=== PATIENT | male | born 1955 | race Caucasian/White ===

== ENCOUNTER → 2018-01-13 | Outpatient (CLI) | payer BC ==
--- NOTE | 2018-01-13 20:59 | CONS ---
CONSULTATION DATE OF SERVICE: 01/13/2018 62-year-old gentleman who has been evaluated in the [facility] for obstructive sleep apnea-hypopnea syndrome. HISTORY OF PRESENT ILLNESS/SLEEP WAKE EVALUATION: SLEEP SCHEDULE: Patient usual sleep schedule from 11:30 pm, 1:00 am, until 5 or 6 a.m. Then he goes back to bed about 7 or 8 a.m. and he sleeps until 10 or 11 am. FALLING ASLEEP: No problem with falling asleep. No TV in bedroom. He may take several naps during the day and he feels refreshed after a nap. DURING SLEEP: During the sleep at night he snores, but he sleeps by himself so no clear information about his breathing during his sleep. He usually goes to bed from 2 times at night. [place] Sleepiness Scale is 5. PAST MEDICAL HISTORY: Positive for hypertension, hyperlipidemia, hypothyroidism, diabetes mellitus. SURGICAL HISTORY: Aortic valve replacement in 2014 with pig valve. MEDICATIONS: Aspirin, furosemide, metoprolol, atorvastatin, lisinopril, Janumet, thyroxine. SOCIAL HISTORY: Negative for smoking and using alcohol at the present time. FAMILY HISTORY: Family history of snoring. REVIEW OF SYSTEMS: Awakenings from sleep, tiredness and sleepiness during the day. PHYSICAL EXAM: A 62-year-old gentleman without distress BP 127/68, HR 80, RR 16, height 5 feet 8 inches, weight 324, BMI 49.2, temperature 98.4, oxygen saturation room air 94%. Oropharynx extremely low position of soft palate. Mallampati IV, slight restriction of nasal breathing. ABDOMEN: Obese extremities show 1+ bilateral ankle edema. Neck Supple, no JVD. Thyroid is not palpable. LUNGS Clear to percussion and to auscultation. Good air exchange. No wheezing or rhonchi. HEART S1, S2 regular. No murmurs, gallops, or rubs. ABDOMEN: Obese. Soft and nontender. Bowel sounds are present. No organomegaly appreciated. EXTREMITIES: No clubbing or cyanosis. INSURANCE AGENCY SALES MANAGER Awake, alert, and oriented X3. Cranial nerves 2 to 7 intact. There is no fasciculation or atrophy. noted. No focal deficits observed. IMPRESSION: 1. Snoring, extremely low position of soft palate, multiple awakenings from sleep with nocturia, sleepiness during the day, obstructive sleep apnea-hypopnea syndrome. 2. Obesity BMI 49.2. 3. Hypertension. 4. Hyperlipidemia. 5. Hypothyroidism. 6. Diabetes mellitus. 7. Status post aortic valve replacement in 2015 with the pig valve. PLAN: 1. Polysomnography for evaluation of patient's breathing during sleep. 2. CPAP/BiPAP titration if sleep study confirms obstructive sleep apnea-hypopnea syndrome. 3. Preferable position during sleep on the side. 4. No driving if patient feels any sleepiness. 5. I will see patient for follow up visit to explain results of testing and following plan. Thank you very much for referring this patient for consultation. Sincerely, Kraig Waldron MD, PhD, FAASM Diplomat of [employer] [place] [employer] Product Manager [facility] [place] MMODL / BILLN: [id number] /
== END | disposition home or self-care (01) ==
LOC: SLEEP 15:01
PROVIDERS: ATTEND Internal Medicine
DX: G47.33 Obstructive sleep apnea (adult) (pediatric) (principal); M27.8 Other specified diseases of jaws; E66.9 Obesity, unspecified; I10 Essential (primary) hypertension; E78.5 Hyperlipidemia, unspecified; E03.9 Hypothyroidism, unspecified; E11.9 Type 2 diabetes mellitus without complications; Z68.42 Body mass index [BMI] 45.0-49.9, adult; Z95.3 Presence of xenogenic heart valve; Z79.82 Long term (current) use of aspirin; Z79.84 Long term (current) use of oral hypoglycemic drugs; Z79.899 Other long term (current) drug therapy
CPT/HCPCS: 99211

== ENCOUNTER 2019-10-05 21:00 | Inpatient (IN) | payer BC, MEDICARE ==
[2019-10-05] MEDS ORDERED: SODIUM CHLORIDE 0.9% 1,000 ML IV STA ×2 (21:11→21:28)
[2019-10-05] MEDS ORDERED: ADENOSINE 3 MG/ML 2 ML VIAL IVP ONE (21:18)
[2019-10-05] MEDS ORDERED: METOPROLOL TARTRATE 5 MG/5 ML VIAL IVP STA (21:27)
[2019-10-05] MEDS ORDERED: ADENOSINE 3 MG/ML 2 ML VIAL IVP STA (21:28)
--- NOTE | 2019-10-05 21:28 | ED ---
Arrhythmia/Palpitations HPI - General Chief Complaint: Arrhythmia/Palpitations Stated Complaint: abnormal EKG Time Seen by Provider: 10/05/19 21:07 Source: patient, RN notes reviewed, old records reviewed Mode of arrival: ambulatory Limitations: no limitations - History of Present Illness Initial Comments: This is a 63-year-old male coming in for near syncopal like symptoms palpitations and heart racing feeling weak and dizzy never had symptoms prior in his life that he can't really recall. No current chest pain diaphoresis no drug drugs or alcohol abuse no fevers no recent nausea vomiting or diarrhea. Patient initially felt heart palpitations did go to urgent care. Resolved Boso since the ER for further evaluation and management on arrival here in the ER patient does feel very lightheaded weak and dizzy and feels like his heart is signific antly elevated history of bit also did show elevated heart rate at home greater than 200 MD Complaint: "heart racing", "skipped beats", palpitations, irregular heart beat -: hour(s) Context: occurred during rest, occurred during exertion Associated Symptoms: shortness of breath, anxiety - Related Data Home Medications Medication Instructions Recorded Confirmed Albuterol Sulfate [Proair Hfa] 1 - 2 puff INHALATION RT-Q4H PRN 10/05/19 10/05/19 Aspirin EC [Ecotrin Low Dose] 81 mg PO HS 10/05/19 10/05/19 Atorvastatin [Lipitor] 20 mg PO HS 10/05/19 10/05/19 Furosemide [Lasix] 20 mg PO BID 10/05/19 10/05/19 Levothyroxine Sodium 100 mcg PO DAILY 10/05/19 10/05/19 Lisinopril [Zestril] 5 mg PO DAILY 10/05/19 10/05/19 sitaGLIPtin PHOS/metFORMIN HCL 1 tab PO DAILY 10/05/19 10/05/19 [Janumet 50-1,000 mg Tablet] Previous Rx's Medication Instructions Recorded Metoprolol Tartrate [Lopressor] 50 mg PO Q12H #60 tab 10/06/19 Allergies Allergy/AdvReac Type Severity Reaction Status Date / Time No Known Allergies Allergy Verified 10/05/19 21:51 Review of Systems ROS Statement: Those systems with pertinent positive or pertinent negative responses have been documented in the HPI. ROS Other: All systems not noted in ROS Statement are negative. Past Medical History Past Medical History: Coronary Artery Disease (CAD), Hypertension History of Any Multi-Drug Resistant Organisms: None Reported Past Surgical History: Orthopedic Surgery Additional Past Surgical History / Comment(s): aortic valve replacement Past Psychological History: No Psychological Hx Reported Smoking Status: Never smoker Past Alcohol Use History: None Reported Past Drug Use History: None Reported General Exam Limitations: no limitations General appearance: alert, anxious, in distress Head exam: Present: atraumatic, normocephalic, normal inspection Eye exam: Present: normal appearance, PERRL, EOMI. Absent: scleral icterus, conjunctival injection, periorbital swelling ENT exam: Present: normal exam, mucous membranes moist Neck exam: Present: normal inspection. Absent: tenderness, meningismus, lymphadenopathy Respiratory exam: Present: normal lung sounds bilaterally. Absent: respiratory distress, wheezes, rales, rhonchi, stridor Cardiovascular Exam: Present: tachycardia, irregular rhythm, normal heart sounds. Absent: systolic murmur, diastolic murmur, rubs, gallop, clicks GI/Abdominal exam: Present: soft, normal bowel sounds. Absent: distended, tenderness, guarding, rebound, rigid Extremities exam: Present: normal inspection, full ROM, normal capillary refill. Absent: tenderness, pedal edema, joint swelling, calf tenderness Back exam: Present: normal inspection Neurological exam: Present: alert, oriented X3, CN II-XII intact Psychiatric exam: Present: normal affect, normal mood Skin exam: Present: warm, dry, intact, normal color. Absent: rash Course Vital Signs 10/05/19 10/05/19 10/05/19 21:02 21:16 21:37 Temperature 98.3 F Pulse Rate 119 H 106 H Pulse Rate [ 179 H Foundry Operator ] Respiratory 24 18 Rate Blood Pressure 148/71 135/82 O2 Sat by Pulse 98 97 Oximetry 10/05/19 10/05/19 10/06/19 22:06 23:00 00:00 Temperature Pulse Rate 96 84 83 Pulse Rate [ Foundry Operator ] Respiratory 18 20 20 Rate Blood Pressure 116/81 125/74 110/71 O2 Sat by Pulse 98 98 97 Oximetry 10/06/19 10/06/19 10/06/19 01:00 02:00 03:00 Temperature Pulse Rate 80 77 74 Pulse Rate [ Foundry Operator ] Respiratory 16 20 16 Rate Blood Pressure 113/69 131/92 117/73 O2 Sat by Pulse 98 97 98 Oximetry 10/06/19 10/06/19 10/06/19 04:00 05:00 06:00 Temperature 97.8 F Pulse Rate 68 80 70 Pulse Rate [ Foundry Operator ] Respiratory 20 20 20 Rate Blood Pressure 116/78 125/78 119/74 O2 Sat by Pulse 97 97 97 Oximetry - Reevaluation(s) Reevaluation #1: 10/05/19 22:32 medical record is reviewed Reevaluation #2: 10/05/19 22:32 patient SVT resolves with 12mg Adenosine - Consultations Consultation #1: spoke w [facility] ok for admission EKG Findings - EKG Comments: EKG Findings:: EKG shows sinus tachycardia rate of 113, [place] 160, QRS 112, QTc 470. Patient went into SVT at rates in the 180s to 190s. Repeat EKG after cardioversion. EKG shows sinus tachycardia of 125, W[place] 158 QRS 116, QTC 42 Medical Decision Making - Medical Decision Making 63 male to the ED co rapid heart rate found to be in SVT discomfort with adenosi dc Alves for cardiology observation - Lab Data Result diagrams: 10/05/19 21:14 10/05/19 21:14 Lab Results 10/05/19 10/05/19 10/05/19 Range/Units 21:14 21:14 21:14 WBC 12.6 H (3.8-10.6) k/uL RBC 5.34 (4.30-5.90) m/uL Hgb 15.9 (13.0-17.5) gm/dL Hct 50.4 (39.0-53.0) % MCV 94.4 (80.0-100.0) fL MCH 29.8 (25.0-35.0) pg MCHC 31.5 (31.0-37.0) g/dL RDW 12.9 (11.5-15.5) % Plt Count 202 (150-450) k/uL Neutrophils % 81 % Lymphocytes % 11 % Monocytes % 5 % Eosinophils % 1 % Basophils % 1 % Neutrophils # 10.3 H (1.3-7.7) k/uL Lymphocytes # 1.3 (1.0-4.8) k/uL Monocytes # 0.6 (0-1.0) k/uL Eosinophils # 0.2 (0-0.7) k/uL Basophils # 0.1 (0-0.2) k/uL PT (9.0-12.0) sec INR (<1.2) APTT (22.0-30.0) sec Sodium 135 L (137-145) mmol/L Potassium 4.4 (3.5-5.1) mmol/L Chloride 102 (98-107) mmol/L Carbon Dioxide 23 (22-30) mmol/L Anion Gap 10 mmol/L BUN 20 (9-20) mg/dL Creatinine 0.74 (0.66-1.25) mg/dL Est GFR (CKD-EPI)AfAm >90 (>60 ml/min/1.73 sqM) Est GFR (CKD-EPI)NonAf >90 (>60 ml/min/1.73 sqM) Glucose 216 H (74-99) mg/dL Calcium 9.7 (8.4-10.2) mg/dL Phosphorus 3.1 (2.5-4.5) mg/dL Magnesium 1.8 (1.6-2.3) mg/dL Total Bilirubin 0.7 (0.2-1.3) mg/dL AST 52 (17-59) U/L ALT 49 (4-49) U/L Alkaline Phosphatase 111 (38-126) U/L Creatine Kinase 73 (55-170) U/L Troponin I (0.000-0.034) ng/mL NT-Pro-B Natriuret Pep 140 pg/mL Total Protein 7.2 (6.3-8.2) g/dL Albumin 4.2 (3.5-5.0) g/dL 10/05/19 10/05/19 Range/Units 21:14 21:14 WBC (3.8-10.6) k/uL RBC (4.30-5.90) m/uL Hgb (13.0-17.5) gm/dL Hct (39.0-53.0) % MCV (80.0-100.0) fL MCH (25.0-35.0) pg MCHC (31.0-37.0) g/dL RDW (11.5-15.5) % Plt Count (150-450) k/uL Neutrophils % % Lymphocytes % % Monocytes % % Eosinophils % % Basophils % % Neutrophils # (1.3-7.7) k/uL Lymphocytes # (1.0-4.8) k/uL Monocytes # (0-1.0) k/uL Eosinophils # (0-0.7) k/uL Basophils # (0-0.2) k/uL PT 10.6 (9.0-12.0) sec INR 1.0 (<1.2) APTT 23.3 (22.0-30.0) sec Sodium (137-145) mmol/L Potassium (3.5-5.1) mmol/L Chloride (98-107) mmol/L Carbon Dioxide (22-30) mmol/L Anion Gap mmol/L BUN (9-20) mg/dL Creatinine (0.66-1.25) mg/dL Est GFR (CKD-EPI)AfAm (>60 ml/min/1.73 sqM) Est GFR (CKD-EPI)NonAf (>60 ml/min/1.73 sqM) Glucose (74-99) mg/dL Calcium (8.4-10.2) mg/dL Phosphorus (2.5-4.5) mg/dL Magnesium (1.6-2.3) mg/dL Total Bilirubin (0.2-1.3) mg/dL AST (17-59) U/L ALT (4-49) U/L Alkaline Phosphatase (38-126) U/L Creatine Kinase (55-170) U/L Troponin I 0.026 (0.000-0.034) ng/mL NT-Pro-B Natriuret Pep pg/mL Total Protein (6.3-8.2) g/dL Albumin (3.5-5.0) g/dL Critical Care Time Critical Care Time: Yes Total Critical Care Time: 31 Disposition Clinical Impression: Palpitations, Tachycardia, Supraventricular tachycardia Disposition: ADMITTED IP TO THIS [facility] Condition: Good Is patient prescribed a controlled substance at d/c from ED?: No
[2019-10-05 21:38] LABS: Basophils # (A) 0.1 k/uL (0-0.2); Basophils % (A) 1 %; Eosinophils # (A) 0.2 k/uL (0-0.7); Eosinophils % (A) 1 %; HCT 50.4 % (39.0-53.0); HGB 15.9 gm/dL (13.0-17.5); Lymphocytes # (A) 1.3 k/uL (1.0-4.8); Lymphocytes % (A) 11 %; MCH 29.8 pg (25.0-35.0); MCHC 31.5 g/dL (31.0-37.0); MCV 94.4 fL (80.0-100.0); Monocytes # (A) 0.6 k/uL (0-1.0); Monocytes % (A) 5 %; Neutrophils # (A) 10.3 k/uL (1.3-7.7); Neutrophils % (A) 81 %; Platelet Count 202 k/uL (150-450); RBC 5.34 m/uL (4.30-5.90); RDW 12.9 % (11.5-15.5); WBC 12.6 k/uL (3.8-10.6)
[2019-10-05 21:44] LABS: Partial Thromboplastin Time 23.3 sec (22.0-30.0); Prothrombin Time 10.6 sec (9.0-12.0)
[2019-10-05 21:45] LABS: ALT 49 U/L (4-49); AST 52 U/L (17-59); African American GFR (CKD) >90 (>60 ml/min/1.73 sqM); Albumin 4.2 g/dL (3.5-5.0); Alkaline Phosphatase 111 U/L (38-126); Anion Gap 10 mmol/L; Blood Urea Nitrogen 20 mg/dL (9-20); Calcium 9.7 mg/dL (8.4-10.2); Carbon Dioxide 23 mmol/L (22-30); Chloride 102 mmol/L (98-107); Creatine Kinase 73 U/L (55-170); Glucose 216 mg/dL (74-99); Magnesium 1.8 mg/dL (1.6-2.3); Non-African American GFR(CKD) >90 (>60 ml/min/1.73 sqM); Phosphorus 3.1 mg/dL (2.5-4.5); Potassium 4.4 mmol/L (3.5-5.1); Sodium 135 mmol/L (137-145); Total Bilirubin 0.7 mg/dL (0.2-1.3); Total Protein 7.2 g/dL (6.3-8.2)
[2019-10-05] MEDS ORDERED: NITROGLYCERIN SL TABS 0.4 MG TAB SUBLINGUAL PRN (22:33)
[2019-10-05] MEDS ORDERED: ASPIRIN 81 MG PO STA (22:33)
[2019-10-06 08:27] LABS: Cholesterol 170 mg/dL (<200); HDL Cholesterol 53 mg/dL (40-60); LDL Cholesterol,Calculated 84 mg/dL (0-99); Triglycerides 163 mg/dL (<150)
[2019-10-06] MEDS ORDERED: ASPIRIN 325 MG TAB PO SCH (09:00)
[2019-10-06] MEDS ORDERED: METOPROLOL TARTRATE 50 MG TAB PO SCH (09:00)
[2019-10-06 11:15] VITALS: BP 129/77; PULSE 76; RESP 18; TEMP 98
--- NOTE | 2019-10-06 12:31 | P.CRDCN ---
History of Present Illness History of present illness: This is Dr. Smith dictating a consult on this patient The patient was interviewed and examined by me IMPRESSION / ASSESSMENT: Supraventricular tachycardia, adenosine sensitive, symptomatic Bicuspid aortic valve status post aVR Hypertension Dyslipidemia PLAN: Detailed discussion with the patient regarding management of supraventricular tachycardia, mechanism of supraventricular tachycardia, explained Valsalva maneuver Discussed medical treatment versus an frequency ablation Continue metoprolol for now Follow-up with primary dev technical mgr in [facility] Patient experienced sudden onset of palpitations. He's been experiencing palpitations after his aortic valve surgery. He ran out of metoprolol about a week back and knees had several episodes of this was the longest 1. He complained of palpitations and he could not count his pulse, because it was so rapid No syncope no chest discomfort Borderline troponins ROS: No fever chills or rigors, no cough, phlegm or expectoration, no nausea, vomiting or diarrhea, no hematuria, dysuria, no musculoskeletal complaints, no strokes or seizures, no skin lesions. EXAMINATION: Blood pressure 145/83 mmHg afebrile Pulse rate in the 60s and 70s to Normal respirations Breath sounds are clear line no rhonchi no crackles Heart sounds S1-S2 are normal there is a very soft systolic murmur S2 is crisp Abdomen soft nontender Sotalol REVIEW OF LABS, ECG & MEDICAL DATA White count 12.6 thousand, hemoglobin 15.9, sodium 135, BUN 20 and creatinine 0.74 Troponins 0.026, 0.046, 0.051 Normal BNP LDL 84 triglycerides 763 Twelve-lead ECG shows supraventricular ventricular tachycardia without clear-cut P waves Abrupt termination with 12 mg of IV adenosine Past Medical History Past Medical History: Coronary Artery Disease (CAD), Hypertension History of Any Multi-Drug Resistant Organisms: None Reported Past Surgical History: Orthopedic Surgery Additional Past Surgical History / Comment(s): aortic valve replacement Past Psychological History: No Psychological Hx Reported Smoking Status: Never smoker Past Alcohol Use History: None Reported Past Drug Use History: None Reported Medications and Allergies Home Medications Medication Instructions Recorded Confirmed Type Albuterol Sulfate [Proair Hfa] 1 - 2 puff INHALATION RT-Q4H PRN 10/05/19 History Aspirin EC [Ecotrin Low Dose] 81 mg PO HS 10/05/19 10/05/19 History Atorvastatin [Lipitor] 20 mg PO HS 10/05/19 10/05/19 History Furosemide [Lasix] 20 mg PO BID 10/05/19 10/05/19 History Levothyroxine Sodium 100 mcg PO DAILY 10/05/19 10/05/19 History Lisinopril [Zestril] 5 mg PO DAILY 10/05/19 10/05/19 History sitaGLIPtin PHOS/metFORMIN HCL 1 tab PO DAILY 10/05/19 10/05/19 History [Janumet 50-1,000 mg Tablet] Metoprolol Tartrate [Lopressor] 50 mg PO Q12H #60 tab 10/06/19 Rx Allergies Allergy/AdvReac Type Severity Reaction Status Date / Time No Known Allergies Allergy Verified 10/05/19 21:51 Physical Exam Vitals: Vital Signs Temp Pulse Pulse Pulse Resp BP BP 10/06/19 11:13 98.0 F 76 18 129/77 10/06/19 09:40 70 16 10/06/19 08:50 72 16 10/06/19 08:25 98.1 F 72 16 145/107 10/06/19 07:14 97.7 F 66 16 159/83 10/06/19 06:00 97.8 F 70 20 119/74 10/06/19 05:00 80 20 125/78 10/06/19 04:00 68 20 116/78 10/06/19 03:00 74 16 117/73 10/06/19 02:00 77 20 131/92 10/06/19 01:00 80 16 113/69 10/06/19 00:00 83 20 110/71 10/05/19 23:00 84 20 125/74 10/05/19 22:06 96 18 116/81 10/05/19 21:37 106 H 18 135/82 10/05/19 21:16 179 H 10/05/19 21:02 98.3 F 119 H 24 148/71 Pulse Ox 10/06/19 11:13 96 10/06/19 09:40 10/06/19 08:50 10/06/19 08:25 94 L 10/06/19 07:14 96 10/06/19 06:00 97 10/06/19 05:00 97 10/06/19 04:00 97 10/06/19 03:00 98 01/31/20 02:00 97 10/06/19 01:00 98 10/06/19 00:00 97 10/05/19 23:00 98 10/05/19 22:06 98 10/05/19 21:37 97 10/05/19 21:16 10/05/19 21:02 98 Intake and Output 10/05/19 10/06/19 10/06/19 22:59 06:59 14:59 Other: Weight 149.685 kg Results 10/05/19 21:14 10/05/19 21:14 Cardiac Enzymes 10/05/19 10/05/19 10/06/19 Range/Units 21:14 21:14 02:57 AST 52 (17-59) U/L Troponin I 0.026 0.046 H* (0.000-0.034) ng/mL 10/06/19 Range/Units 07:53 AST (17-59) U/L Troponin I 0.051 H* (0.000-0.034) ng/mL Coagulation 10/05/19 Range/Units 21:14 PT 10.6 (9.0-12.0) sec APTT 23.3 (22.0-30.0) sec Lipids 10/06/19 Range/Units 07:53 Triglycerides 163 H (<150) mg/dL Cholesterol 170 (<200) mg/dL HDL Cholesterol 53 (40-60) mg/dL CBC 10/05/19 Range/Units 21:14 WBC 12.6 H (3.8-10.6) k/uL RBC 5.34 (4.30-5.90) m/uL Hgb 15.9 (13.0-17.5) gm/dL Hct 50.4 (39.0-53.0) % Plt Count 202 (150-450) k/uL Comprehensive Metabolic Panel 10/05/19 Range/Units 21:14 Sodium 135 L (137-145) mmol/L Potassium 4.4 (3.5-5.1) mmol/L Chloride 102 (98-107) mmol/L Carbon Dioxide 23 (22-30) mmol/L BUN 20 (9-20) mg/dL Creatinine 0.74 (0.66-1.25) mg/dL Glucose 216 H (74-99) mg/dL Calcium 9.7 (8.4-10.2) mg/dL AST 52 (17-59) U/L ALT 49 (4-49) U/L Alkaline Phosphatase 111 (38-126) U/L Total Protein 7.2 (6.3-8.2) g/dL Albumin 4.2 (3.5-5.0) g/dL Current Medications Generic Name Dose Route Start Last Admin Trade Name Freq PRN Reason Stop Dose Admin Aspirin 325 mg 10/06/19 09:00 10/06/19 09:26 Aspirin PO 325 mg DAILY KATHI Administration Metoprolol Tartrate 50 mg 10/06/19 09:00 10/06/19 09:25 Lopressor PO 50 mg BID KATHI Administration Nitroglycerin 0.4 mg 10/05/19 22:33 Nitrostat SUBLINGUAL Q5M PRN Chest Pain Intake and Output 10/05/19 10/06/19 10/06/19 22:59 06:59 14:59 Other: Weight 149.685 kg 10/05/19 21:14 10/05/19 21:14
--- NOTE | 2019-10-06 12:44 | ECHOF ---
Referral Reason:elevated trop MEASUREMENTS -------- HEIGHT: 177.8 cm WEIGHT: 149.7 kg BP: 145/107 RVIDd: 3.6 cm (< 3.3) IVSd: 1.5 cm (0.6 - 1.1) LVIDd: 5.5 cm (3.9 - 5.3) LVPWd: 1.7 cm (0.6 - 1.1) IVSs: 2.2 cm LVIDs: 3.0 cm LVPWs: 2.2 cm LA Diam: 3.9 cm (2.7 - 3.8) LAESV Index (A-L): 29.36 ml/m Ao Diam: 3.8 cm (2.0 - 3.7) MV EXCURSION: 10.090 mm (> 18.000) MV EF SLOPE: 56 mm/s (70 - 150) EPSS: 1.1 cm MV E Nicholas: 1.10 m/s MV DecT: 210 ms MV A Nicholas: 0.99 m/s MV E/A Ratio: 1.10 AV maxP.49 mmHg AV meanP.73 mmHg RAP: 5.00 mmHg RVSP: 49.79 mmHg FINDINGS -------- Sinus rhythm. This was a technically difficult study with suboptimal views. The left ventricular size is normal. There is moderate concentric left ventricular hypertrophy. O verall left ventricular systolic function is normal with, an EF between 55 - 60 %. The right ventricle is mildly enlarged. LA is midly dilated 29-33ml/m2. The right atrium was not well visualized. 5.0mg of Lumason was utilized for enhancement of images There is moderate aortic regurgitation. Peak/mean gradient across the Aortic Valve is 46.49mmHg / 2 6.73mmHg. Abnormally functioning porcine bioprosthetic aortic valve. Mild mitral annular calcification present. Mild mitral regurgitation is present. Mild tricuspid regurgitation present. There is moderate pulmonary hypertension. The right ventric ular systolic pressure, as measured by Doppler, is 49.79mmHg. Trace/mild (physiologic) pulmonic regurgitation. The aortic root is dilated measuring 3.8cm. IVC Not well visulized. There is no pericardial effusion. CONCLUSIONS -------- 1. Sinus rhythm. 2. This was a technically difficult study with suboptimal views. 3. The left ventricular size is normal. 4. There is moderate concentric left ventricular hypertrophy. 5. Overall left ventricular systolic function is normal with, an EF between 55 - 60 %. 6. The right ventricle is mildly enlarged. 7. LA is midly dilated 29-33ml/m2. 8. The right atrium was not well visualized. 9. 5.0mg of Lumason was utilized for enhancement of images 10. There is moderate aortic regurgitation. 11. Peak/mean gradient across the Aortic Valve is 46.49mmHg / 26.73mmHg. 12. Abnormally functioning porcine bioprosthetic aortic valve. 13. Mild mitral annular calcification present. 14. Mild mitral regurgitation is present. 15. Mild tricuspid regurgitation present. 16. There is moderate pulmonary hypertension. 17. The right ventricular systolic pressure, as measured by Doppler, is 49.79mmHg. 18. Trace/mild (physiologic) pulmonic regurgitation. 19. The aortic root is dilated measuring 3.8cm. 20. IVC Not well visulized. 21. There is no pericardial effusion. FEED BLENDER: DANE Cornejo
--- NOTE | 2019-10-06 13:17 | P.HPIM ---
History of Present Illness Patient came in with compensative palpitations. Patient denied any history of congestive heart failure. 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 Patient was started back on metoprolol patient is given will be discharged today patient has bilateral pedal edema probably secondary to chronic venous insufficiency patient is morbidly obese was complaining of lack of sleep Last few weeks. Patient will need a sleep study Review of Systems REVIEW OF SYSTEMS: CONSTITUTIONAL: No fever, no malaise, no fatigue. HEENT: No recent visual problems or hearing problems. Denied any sore throat. CARDIOVASCULAR: No chest pain, orthopnea, PND, , no syncope. PULMONARY: No shortness of breath, no cough, no hemoptysis. GASTROINTESTINAL: No diarrhea, no nausea, no vomiting, no abdominal pain. NEUROLOGICAL: No headaches, no weakness, no numbness. HEMATOLOGICAL: Denies any bleeding or petechiae. GENITOURINARY: Denies any burning micturition, frequency, or urgency. MUSCULOSKELETAL/RHEUMATOLOGICAL: Denies any joint pain, swelling, or any muscle pain. ENDOCRINE: Denies any polyuria or polydipsia. The rest of the 14-point review of systems is negative. Past Medical History Past Medical History: Coronary Artery Disease (CAD), Hypertension History of Any Multi-Drug Resistant Organisms: None Reported Past Surgical History: Orthopedic Surgery Additional Past Surgical History / Comment(s): aortic valve replacement Past Psychological History: No Psychological Hx Reported Smoking Status: Never smoker Past Alcohol Use History: None Reported Past Drug Use History: None Reported Medications and Allergies Home Medications Medication Instructions Recorded Confirmed Type Albuterol Sulfate [Proair Hfa] 1 - 2 puff INHALATION RT-Q4H PRN 10/05/19 10/05/19 History Aspirin EC [Ecotrin Low Dose] 81 mg PO HS 10/05/19 10/05/19 History Atorvastatin [Lipitor] 20 mg PO HS 10/05/19 10/05/19 History Furosemide [Lasix] 20 mg PO BID 10/05/19 10/05/19 History Levothyroxine Sodium 100 mcg PO DAILY 10/05/19 10/05/19 History Lisinopril [Zestril] 5 mg PO DAILY 10/05/19 10/05/19 History sitaGLIPtin PHOS/metFORMIN HCL 1 tab PO DAILY 10/05/19 10/05/19 History [Janumet 50-1,000 mg Tablet] Metoprolol Tartrate [Lopressor] 50 mg PO Q12H #60 tab 10/06/19 Rx Allergies Allergy/AdvReac Type Severity Reaction Status Date / Time No Known Allergies Allergy Verified 10/05/19 21:51 Physical Exam Vitals: Vital Signs Temp Pulse Pulse Pulse Resp BP BP 10/06/19 11:13 98.0 F 76 18 129/77 10/06/19 09:40 70 16 10/06/19 08:50 72 16 10/06/19 08:25 98.1 F 72 16 145/107 10/06/19 07:14 97.7 F 66 16 159/83 10/06/19 06:00 97.8 F 70 20 119/74 10/06/19 05:00 80 20 125/78 10/06/19 04:00 68 20 116/78 10/06/19 03:00 74 16 117/73 10/06/19 02:00 77 20 131/92 10/06/19 01:00 80 16 113/69 10/06/19 00:00 83 20 110/71 10/05/19 23:00 84 20 125/74 10/05/19 22:06 96 18 116/81 10/05/19 21:37 106 H 18 135/82 10/05/19 21:16 179 H 10/05/19 21:02 98.3 F 119 H 24 148/71 Pulse Ox 10/06/19 11:13 96 10/06/19 09:40 10/06/19 08:50 10/06/19 08:25 94 L 10/06/19 07:14 96 10/06/19 06:00 97 10/06/19 05:00 97 10/06/19 04:00 97 10/06/19 03:00 98 10/06/19 02:00 97 10/06/19 01:00 98 10/06/19 00:00 97 10/05/19 23:00 98 10/05/19 22:06 98 10/05/19 21:37 97 10/05/19 21:16 10/05/19 21:02 98 Intake and Output 10/05/19 10/06/1920 22:59 06:59 14:59 Other: Weight 149.685 kg PHYSICAL EXAMINATION: GENERAL: The patient is alert and oriented x3, not in any acute distress. Obese HEENT: Pupils are round and equally reacting to light. EOMI. No scleral icterus. No conjunctival pallor. Normocephalic, atraumatic. No pharyngeal erythema. No thyromegaly. CARDIOVASCULAR: S1 and S2 present. No murmurs, rubs, or gallops. PULMONARY: Chest is clear to auscultation, no wheezing or crackles. ABDOMEN: Soft, nontender, nondistended, normoactive bowel sounds. No palpable organomegaly. MUSCULOSKELETAL: No joint swelling or deformity. EXTREMITIES: No cyanosis, clubbing, does have bilateral pitting pedal edema 2+. NEUROLOGICAL: Gross neurological examination did not reveal any focal deficits. SKIN: No rashes. Results CBC & Chem 7: 10/05/19 21:14 10/05/19 21:14 Labs: Abnormal Lab Results - Last 24 Hours (Table) 10/05/19 10/05/19 10/06/19 Range/Units 21:14 21:14 02:57 WBC 12.6 H (3.8-10.6) k/uL Neutrophils # 10.3 H (1.3-7.7) k/uL Sodium 135 L (137-145) mmol/L Glucose 216 H (74-99) mg/dL Troponin I 0.046 H* (0.000-0.034) ng/mL Triglycerides (<150) mg/dL 10/06/19 10/06/19 Range/Units 07:53 07:53 WBC (3.8-10.6) k/uL Neutrophils # (1.3-7.7) k/uL Sodium (137-145) mmol/L Glucose (74-99) mg/dL Troponin I 0.051 H* (0.000-0.034) ng/mL Triglycerides 163 H (<150) mg/dL Assessment and Plan Plan: -Symptomatic. bradycardia tachycardia super ventricular tachycardia responded to adenosine. Patient's improved. 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 -Possibility of sleep apnea. 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
--- NOTE | 2019-10-06 13:17 | P.DS ---
Providers Date of admission: 10/05/19 22:34 Attending physician: Fransisco Paige Consults: 10/05/19 22:33 Consult Physician Urgent Consulting Provider: Cleopatra Jack Consult Reason/Comments: svt Do you want consulting provider notified?: Yes Primary care physician: Reinaldo Muller [facility] Course: Please refer to [facility] for further details Patient Condition at Discharge: Good Plan - Discharge Summary New Discharge Prescriptions: Continue Lisinopril [Zestril] 5 mg PO DAILY Furosemide [Lasix] 20 mg PO BID Atorvastatin [Lipitor] 20 mg PO HS Aspirin EC [Ecotrin Low Dose] 81 mg PO HS Albuterol Sulfate [Proair Hfa] 1 - 2 puff INHALATION RT-Q4H PRN PRN Reason: Shortness Of Breath sitaGLIPtin PHOS/metFORMIN HCL [Janumet 50-1,000 mg Tablet] 1 tab PO DAILY Levothyroxine Sodium 100 mcg PO DAILY Metoprolol Tartrate [Lopressor] 50 mg PO Q12H #60 tab Discharge Medication List Albuterol Sulfate [Proair Hfa] 1 - 2 puff INHALATION RT-Q4H PRN 10/05/19 [History] Aspirin EC [Ecotrin Low Dose] 81 mg PO HS 10/05/19 [History] Atorvastatin [Lipitor] 20 mg PO HS 10/05/19 [History] Furosemide [Lasix] 20 mg PO BID 10/05/19 [History] Levothyroxine Sodium 100 mcg PO DAILY 10/05/19 [History] Lisinopril [Zestril] 5 mg PO DAILY 10/05/19 [History] sitaGLIPtin PHOS/metFORMIN HCL [Janumet 50-1,000 mg Tablet] 1 tab PO DAILY 10/05/19 [History] Metoprolol Tartrate [Lopressor] 50 mg PO Q12H #60 tab 10/06/19 [Rx] Follow up Appointment(s)/Referral(s): Reinaldo Muller III, MD [Primary Care Provider] - 1-2 days
== END 2019-10-06 15:45 | disposition home or self-care (01) | DRG 309 ==
LOC: EC 21:00 → 3SCARD 22:34
PROVIDERS: ADMIT Hospitalist; ATTEND Hospitalist
DX: I47.1 Supraventricular tachycardia (principal); Q23.1 Congenital insufficiency of aortic valve; Z68.42 Body mass index [BMI] 45.0-49.9, adult; E78.5 Hyperlipidemia, unspecified; F41.9 Anxiety disorder, unspecified; E66.9 Obesity, unspecified; I10 Essential (primary) hypertension; I25.10 Atherosclerotic heart disease of native coronary artery without angina pectoris; Z79.84 Long term (current) use of oral hypoglycemic drugs; Z79.890 Hormone replacement therapy; Z79.899 Other long term (current) drug therapy; T44.7X6A Underdosing of beta-adrenoreceptor antagonists, initial encounter; Z91.128 Patient's intentional underdosing of medication regimen for other reason; Z95.2 Presence of prosthetic heart valve; G47.30 Sleep apnea, unspecified
CPT/HCPCS: 36415; 80053; 80061; 82550; 83605; 83735; 83880; 84100; 84443; 84484; 85025; 85610; 85730; 93005; 93306; 96361; 96374; 96375; 99291

== ENCOUNTER 2020-02-22 | Emergency (ER) | payer MEDICARE ==
[2020-02-22 00:09] VITALS: BP 163/81; PULSE 100; RESP 22; TEMP 98
== END 2020-02-22 00:12 | disposition left against medical advice (07) ==
LOC: EC
DX: R00.0 Tachycardia, unspecified (principal)
CPT/HCPCS: 99499

== ENCOUNTER → 2020-07-16 | Outpatient (CLI) | payer MEDICARE ==
--- NOTE | 2020-07-16 13:09 | US ---
EXAMINATION TYPE: US venous doppler duplex LE RT DATE OF EXAM: 07/16/2020 12:55 PM COMPARISON: NONE CLINICAL HISTORY: L03.115 CELLULITIS OR RT LOWER LIMB,M79.604 PAIN IN RT LEG. SIDE PERFORMED: Right TECHNIQUE: The lower extremity deep venous system is examined utilizing real time linear array sonog vitaliy with graded compression, doppler sonography and color-flow sonography. VESSELS IMAGED: Common Femoral Vein Deep Femoral Vein Greater Saphenous Vein * Femoral Vein Popliteal Vein Small Saphenous Vein * Proximal Calf Veins (* superficial vessels) Right Leg: Negative for DVT IMPRESSION: No evidence for DVT at this time.
== END | disposition home or self-care (01) ==
LOC: RADUSWWP 12:28
PROVIDERS: ATTEND Family Medicine
DX: L03.115 Cellulitis of right lower limb (principal); M79.604 Pain in right leg

== ENCOUNTER 2021-01-10 13:48 | Emergency (ER) | payer MEDICARE ==
[2021-01-10 13:58] VITALS: BP 107/69; PULSE 104; RESP 26; TEMP 98.4
[2021-01-10] MEDS ORDERED: FLECAINIDE 50 MG TAB PO STA (14:37)
[2021-01-10] MEDS ORDERED: CEPHALEXIN 500MG STARTER PACK 4 CAP BTL PO STA (14:43)
--- NOTE | 2021-01-10 14:43 | ED ---
General Adult HPI - General Chief complaint: Shortness of Breath Stated complaint: SOB Time Seen by Provider: 01/10/21 14:03 Source: patient Mode of arrival: ambulatory Limitations: no limitations - History of Present Illness Initial comments: 65-year-old male with a past medical history coronary artery disease, heart failure, diabetes mellitus, hyperlipidemia, hypertension, atrial fibrillation, aortic valve replacement presents to the emergency room for a chief complaint of body stiffness. Patient reports that he has been sitting around all winter. The past 2 days he started working on his truck's again. When he woke up today he was very stiff so decided to go to urgent care. Patient states that once he got there the stiffness improves significantly after is moving around. Also told her to her that he felt a little more winded over the past 2 days and normal. Patient himself is attributing this to the fact that he has been out and about doing activities where he has not been in the past several months. Patient states his legs are a little bit more swollen as well. Patient states he did not want to come here by urgent care told him he had to. He states he has an appointment with his primary care provider in 3 days. He states he does not want anything done here today and just wants to go to his primary care.Patient has no other complaints at this time including chest pain, abdominal pain, nausea or vomiting, headache, or visual changes. - Related Data Home Medications Medication Instructions Recorded Confirmed Albuterol Sulfate [Proair Hfa] 1 - 2 puff INHALATION RT-Q4H PRN 10/05/19 10/05/19 Aspirin EC [Ecotrin Low Dose] 81 mg PO HS 10/05/19 10/05/19 Atorvastatin [Lipitor] 20 mg PO HS 10/05/19 10/05/19 Furosemide [Lasix] 20 mg PO BID 10/05/19 10/05/19 Levothyroxine Sodium 100 mcg PO DAILY 10/05/19 10/05/19 lisinopriL [Zestril] 5 mg PO DAILY 10/05/19 10/05/19 sitaGLIPtin PHOS/metFORMIN HCL 1 tab PO DAILY 10/05/19 10/05/19 [Janumet 50-1,000 mg Tablet] Previous Rx's Medication Instructions Recorded Metoprolol Tartrate [Lopressor] 50 mg PO Q12H #60 tab 10/06/19 Allergies Allergy/AdvReac Type Severity Reaction Status Date / Time No Known Allergies Allergy Verified 01/10/21 13:55 Review of Systems ROS Statement: Those systems with pertinent positive or pertinent negative responses have been documented in the HPI. ROS Other: All systems not noted in ROS Statement are negative. Past Medical History Past Medical History: Coronary Artery Disease (CAD), Heart Failure, Diabetes Me llitus, Hyperlipidemia, Hypertension Additional Past Medical History / Comment(s): SVT, History of Any Multi-Drug Resistant Organisms: None Reported Past Surgical History: Orthopedic Surgery Additional Past Surgical History / Comment(s): aortic valve replacement, Past Psychological History: No Psychological Hx Reported Smoking Status: Never smoker Past Alcohol Use History: None Reported Past Drug Use History: None Reported General Exam - General Exam Comments Initial Comments: Left leg: Mild erythema noted of the lower leg. Nonpitting edema noted. Cap refill less than 2 seconds, DT pulse 2+. Full range of motion. Right leg: Erythema noted of the lower leg as well as an area on the inner upper thigh. No tenderness. Nonpitting edema noted. Full range of motion. Limitations: no limitations General appearance: alert, in no apparent distress Head exam: Present: atraumatic, normocephalic, normal inspection Eye exam: Present: normal appearance, PERRL, EOMI. Absent: scleral icterus, conjunctival injection, periorbital swelling ENT exam: Present: normal exam, mucous membranes moist Neck exam: Present: normal inspection, full ROM. Absent: tenderness, meningismus, lymphadenopathy Respiratory exam: Present: normal lung sounds bilaterally. Absent: respiratory distress, wheezes, rales, rhonchi, stridor Cardiovascular Exam: Present: regular rate, normal rhythm, normal heart sounds. Absent: systolic murmur, diastolic murmur, rubs, gallop, clicks GI/Abdominal exam: Present: soft, normal bowel sounds. Absent: distended, tenderness, guarding, rebound, rigid Neurological exam: Present: alert Course Vital Signs 01/10/21 13:50 Temperature 98.4 F Pulse Rate 104 H Respiratory 26 H Rate Blood Pressure 107/69 O2 Sat by Pulse 94 L Oximetry Medical Decision Making - Medical Decision Making Patient presents with stable vitals. Slight tachycardia which patient does have a history of. He is due for his flecanaide which he is requesting. HPI and physical exam as documented. I discussed with patient that I would like to work him up for heart failure exacerbation and rule out DVT or PE, both of which could be life-threatening. Patient reports he does not want anything done. He thinks he may need antibiotics for his leg as it is more red than normal but otherwise does not want a workup. I did discuss this could mean he has a blood clot which could go to his lungs but he does not want this evaluated. He states he has an appointment with his primary care provider on Wednesday and does not want anything started here. He states he only came because he told urgent care he would. He is agreeable to returning for worsening symptoms which i highly encouraged. patient is alert and oriented, able to make his own medical decis ions. COVID negative at urgent care Disposition Clinical Impression: Shortness of breath, Leg swelling, Myalgia Disposition: Left Against Medical Advice Condition: Undetermined Instructions (If sedation given, give patient instructions): Cellulitis (ED) Additional Instructions: Please take antibiotic as directed. Monitor symptoms. If you're becoming more short of breath, developing chest pain, having fevers, or redness or swelling is worsening in your leg you must return to the emergency room. Otherwise make sure you attend your appointment on Wednesday with your doctor. Is patient prescribed a controlled substance at d/c from ED?: No Referrals: Minna Sousa MD [Primary Care Provider] - 1-2 days Time of Disposition: 14:42
== END 2021-01-10 15:00 | disposition left against medical advice (07) ==
LOC: EC 13:48
DX: R06.02 Shortness of breath (principal); M79.89 Other specified soft tissue disorders; M79.10 Myalgia, unspecified site; I25.10 Atherosclerotic heart disease of native coronary artery without angina pectoris; I11.0 Hypertensive heart disease with heart failure; I50.9 Heart failure, unspecified; E78.5 Hyperlipidemia, unspecified; E11.9 Type 2 diabetes mellitus without complications; Z79.82 Long term (current) use of aspirin
CPT/HCPCS: 99284

== ENCOUNTER 2021-01-13 15:08 | Observation (INO) | payer MEDICARE ==
--- NOTE | 2021-01-13 17:07 | ED ---
Extremity Problem HPI - General Source: patient, RN notes reviewed Mode of arrival: ambulatory Limitations: no limitations <Waqas Campoverde - Last Filed: 01/13/21 18:31> <Enid Santana - Last Filed: 01/25/21 17:45> - General Chief complaint: Extremity Problem,Nontraumatic Stated complaint: R Leg infection, blisters Time Seen by Provider: 01/13/21 16:21 - History of Present Illness Initial comments: Patient is a 65-year-old male that presents to emergency department complaining of right lower extremity infection. He notes that he is been to his primary care been on several rounds antibiotics. He recently went to a tolerable amount for a procedure where they kept him for some antibiotic therapy due to a azinab lulitis and right lower leg extremity infection. He comes in today stating that his right lower leg has not gotten any better its fire engine red was extremely hot to the touch and has several large blisters. He notes that it also been weeping serosanguineous fluid last several days. He denied any discomfort or pain in that leg. He denied any weakness numbness tingling decreased sensation in that foot. He denied any chest pain shortness of breath headache nausea vomiting diarrhea constipation fever fatigue chills. (Waqas Campoverde) - Related Data Home Medications Medication Instructions Recorded Confirmed Aspirin EC [Ecotrin Low Dose] 81 mg PO HS 10/05/19 01/13/21 Atorvastatin [Lipitor] 20 mg PO HS 10/05/19 01/13/21 sitaGLIPtin PHOS/metFORMIN HCL 1 tab PO DAILY 10/05/19 01/13/21 [Janumet 50-1,000 mg Tablet] Empagliflozin [Jardiance] 25 mg PO DAILY 01/13/21 01/13/21 Flecainide Acetate 100 mg PO BID 01/13/21 01/13/21 Furosemide [Lasix] 40 mg PO BID 01/13/21 01/13/21 Levothyroxine Sodium [Synthroid] 112 mcg PO DAILY 01/13/21 01/13/21 Metoprolol Tartrate [Lopressor] 50 mg PO BID 01/13/21 01/13/21 Potassium Chloride ER [K-Dur 10] 10 meq PO BID 01/13/21 01/13/21 lisinopriL [Zestril] 5 mg PO DAILY 01/13/21 01/13/21 metOLazone [Zaroxolyn] 5 mg PO Q48H 01/13/21 01/13/21 Previous Rx's Medication Instructions Recorded Cephalexin [Keflex] 500 mg PO Q6HR 10 Days #40 cap 01/18/21 Insulin Detemir (Levemir) [Levemir] 15 unit SQ HS #1 syr 01/18/21 Multivitamins, Thera [Multivitamin 1 each PO DAILY@1200 #30 tab 01/18/21 (formulary)] Allergies Allergy/AdvReac Type Severity Reaction Status Date / Time No Known Allergies Allergy Verified 01/13/21 20:28 Review of Systems ROS Other: All systems not noted in ROS Statement are negative. <Waqas Campoverde - Last Filed: 01/13/21 18:31> ROS Other: All systems not noted in ROS Statement are negative. <Enid Santana - Last Filed: 01/25/21 17:45> ROS Statement: Those systems with pertinent positive or pertinent negative responses have been documented in the HPI. Past Medical History Past Medical History: Coronary Artery Disease (CAD), Heart Failure, Diabetes Mellitus, Hyperlipidemia, Hypertension Additional Past Medical History / Comment(s): SVT, History of Any Multi-Drug Resistant Organisms: None Reported Past Surgical History: Orthopedic Surgery Additional Past Surgical History / Comment(s): aortic valve replacement, Past Psychological History: No Psychological Hx Reported Smoking Status: Never smoker Past Alcohol Use History: None Reported Past Drug Use History: None Reported <Waqas Campoverde - Last Filed: 01/13/21 18:31> General Exam Limitations: no limitations General appearance: alert, in no apparent distress, obese Head exam: Present: atraumatic, normocephalic, normal inspection Eye exam: Present: normal appearance, PERRL, EOMI. Absent: scleral icterus, con junctival injection, periorbital swelling Neck exam: Present: normal inspection. Absent: tenderness, meningismus, lymphadenopathy Respiratory exam: Present: normal lung sounds bilaterally. Absent: respiratory distress, wheezes, rales, rhonchi, stridor Cardiovascular Exam: Present: regular rate, normal rhythm, normal heart sounds. Absent: systolic murmur, diastolic murmur, rubs, gallop, clicks GI/Abdominal exam: Present: soft, normal bowel sounds. Absent: distended, tenderness, guarding, rebound, rigid Extremities exam: Present: normal inspection, full ROM, normal capillary refill. Absent: tenderness, pedal edema, joint swelling, calf tenderness Neurological exam: Present: alert, oriented X3, CN II-XII intact Psychiatric exam: Present: normal affect, normal mood Skin exam: Present: warm, dry, intact, normal color, erythema (Circumferential on right lower extremity with several vesicles and large blisters.), other (Right lower extremity weeping serosanguineous fluid.). Absent: rash <Waqas Campoverde - Last Filed: 01/13/21 18:31> Course Vital Signs 01/13/21 01/13/21 01/13/21 15:15 17:44 19:04 Temperature 97.8 F Pulse Rate 79 74 72 Pulse Rate [ Right] Respiratory 18 18 18 Rate Blood Pressure 97/52 100/57 111/68 Blood Pressure [Right Arm] O2 Sat by Pulse 95 99 95 Oximetry 01/14/21 01/14/21 00:32 01:32 Temperature 98.1 F Pulse Rate 80 Pulse Rate [ 63 Right] Respiratory 16 24 Rate Blood Pressure 116/64 Blood Pressure 118/57 [Right Arm] O2 Sat by Pulse 96 100 Oximetry Medical Decision Making - Lab Data Result diagrams: 01/13/21 16:43 01/13/21 16:43 <Waqas Campoverde - Last Filed: 01/13/21 18:31> - Lab Data Result diagrams: 01/17/21 04:22 01/17/21 04:22 <Enid Santana - Last Filed: 01/25/21 17:45> - Medical Decision Making 65-year-old male complaining of right lower leg infection status post several antibiotic therapies. Labs, right lower leg X-ray ordered. Labs: WBC 17.5, BU when 54, lactic acid 2.[address] Santana, patient will be admitted. Lore Mathew from Dr. Paige's group was consult and will accept the admit. We'll consult infectious disease. (Waqas Campoverde) I was available for consultation in the emergency department. The history and physical exam were done by the midlevel provider. I was consulted for this patients care. I reviewed the case with the midlevel provider and based on their presentation of the patient, I agree with the assessment, medical decision making and plan of care as documented. Chart was dictated using [employer] dictation software. Attempts were made to correct any dictation errors however some typographical errors may persist. Patient was seen during a national state of emergency due to the Covid-19 pandemic. (Enid Santana) - Lab Data Lab Results 01/13/21 01/13/21 01/13/21 Range/Units 15:30 16:43 16:43 WBC 17.5 H (3.8-10.6) k/uL RBC 4.91 (4.30-5.90) m/uL Hgb 15.0 (13.0-17.5) gm/dL Hct 45.3 (39.0-53.0) % MCV 92.4 (80.0-100.0) fL MCH 30.6 (25.0-35.0) pg MCHC 33.2 (31.0-37.0) g/dL RDW 13.7 (11.5-15.5) % Plt Count 283 (150-450) k/uL MPV 7.0 Neutrophils % 89 % Lymphocytes % 5 % Monocytes % 3 % Eosinophils % 0 % Basophils % 0 % Neutrophils # 15.7 H (1.3-7.7) k/uL Lymphocytes # 1.0 (1.0-4.8) k/uL Monocytes # 0.6 (0-1.0) k/uL Eosinophils # 0.1 (0-0.7) k/uL Basophils # 0.1 (0-0.2) k/uL ESR 78 H (0-15) mm/hr Sodium 134 L (137-145) mmol/L Potassium 3.9 (3.5-5.1) mmol/L Chloride 90 L (98-107) mmol/L Carbon Dioxide 30 (22-30) mmol/L Anion Gap 14 mmol/L BUN 54 H (9-20) mg/dL Creatinine 1.31 H (0.66-1.25) mg/dL Est GFR (CKD-EPI)AfAm 65 (>60 ml/min/1.73 sqM) Est GFR (CKD-EPI)NonAf 56 (>60 ml/min/1.73 sqM) Glucose 250 H (74-99) mg/dL POC Glucose (mg/dL) (75-99) mg/dL POC Glu [address] ID Estimated [address] Glu mg/dL 206 Hemoglobin A1c 8.8 H (4.0-6.0) % Lactic Ac Sepsis Rflx Plasma Lactic Acid Luis (0.7-2.0) mmol/L Calcium 9.8 (8.4-10.2) mg/dL Total Bilirubin 0.7 (0.2-1.3) mg/dL AST 30 (17-59) U/L ALT 27 (4-49) U/L Alkaline Phosphatase 114 (38-126) U/L C-Reactive Protein 15.4 H (<1.0) mg/dL Total Protein 7.8 (6.3-8.2) g/dL Albumin 4.3 (3.5-5.0) g/dL Coronavirus (PCR) (Not Detected) 01/13/21 01/13/21 01/13/21 Range/Units 16:43 17:29 19:39 WBC (3.8-10.6) k/uL RBC (4.30-5.90) m/uL Hgb (13.0-17.5) gm/dL Hct (39.0-53.0) % MCV (80.0-100.0) fL MCH (25.0-35.0) pg MCHC (31.0-37.0) g/dL RDW (11.5-15.5) % Plt Count (150-450) k/uL MPV Neutrophils % % Lymphocytes % % Monocytes % % Eosinophils % % Basophils % % Neutrophils # (1.3-7.7) k/uL Lymphocytes # (1.0-4.8) k/uL Monocytes # (0-1.0) k/uL Eosinophils # (0-0.7) k/uL Basophils # (0-0.2) k/uL ESR (0-15) mm/hr Sodium (137-145) mmol/L Potassium (3.5-5.1) mmol/L Chloride (98-107) mmol/L Carbon Dioxide (22-30) mmol/L Anion Gap mmol/L BUN (9-20) mg/dL Creatinine (0.66-1.25) mg/dL Est GFR (CKD-EPI)AfAm (>60 ml/min/1.73 sqM) Est GFR (CKD-EPI)NonAf (>60 ml/min/1.73 sqM) Glucose (74-99) mg/dL POC Glucose (mg/dL) (75-99) mg/dL POC Glu [address] ID Estimated [address] Glu mg/dL Hemoglobin A1c (4.0-6.0) % Lactic Ac Sepsis Rflx Y Plasma Lactic Acid Luis 2.1 H* 1.5 (0.7-2.0) mmol/L Calcium (8.4-10.2) mg/dL Total Bilirubin (0.2-1.3) mg/dL AST (17-59) U/L ALT (4-49) U/L Alkaline Phosphatase (38-126) U/L C-Reactive Protein (<1.0) mg/dL Total Protein (6.3-8.2) g/dL Albumin (3.5-5.0) g/dL Coronavirus (PCR) (Not Detected) 01/13/21 01/13/21 01/14/21 Range/Units 20:01 22:57 07:16 WBC (3.8-10.6) k/uL RBC (4.30-5.90) m/uL Hgb (13.0-17.5) gm/dL Hct (39.0-53.0) % MCV (80.0-100.0) fL MCH (25.0-35.0) pg MCHC (31.0-37.0) g/dL RDW (11.5-15.5) % Plt Count (150-450) k/uL MPV Neutrophils % % Lymphocytes % % Monocytes % % Eosinophils % % Basophils % % Neutrophils # (1.3-7.7) k/uL Lymphocytes # (1.0-4.8) k/uL Monocytes # (0-1.0) k/uL Eosinophils # (0-0.7) k/uL Basophils # (0-0.2) k/uL ESR (0-15) mm/hr Sodium (137-145) mmol/L Potassium (3.5-5.1) mmol/L Chloride (98-107) mmol/L Carbon Dioxide (22-30) mmol/L Anion Gap mmol/L BUN (9-20) mg/dL Creatinine (0.66-1.25) mg/dL Est GFR (CKD-EPI)AfAm (>60 ml/min/1.73 sqM) Est GFR (CKD-EPI)NonAf (>60 ml/min/1.73 sqM) Glucose (74-99) mg/dL POC Glucose (mg/dL) 202 H (75-99) mg/dL POC Glu [address] Messenger ID Paula Partida [address] Glu mg/dL Hemoglobin A1c (4.0-6.0) % Lactic Ac Sepsis Rflx Plasma Lactic Acid Luis (0.7-2.0) mmol/L Calcium (8.4-10.2) mg/dL Total Bilirubin (0.2-1.3) mg/dL AST (17-59) U/L ALT (4-49) U/L Alkaline Phosphatase (38-126) U/L C-Reactive Protein (<1.0) mg/dL Total Protein (6.3-8.2) g/dL Albumin (3.5-5.0) g/dL Coronavirus (PCR) Not Detected Not Detected (Not Detected) 01/14/21 01/14/21 01/14/21 Range/Units 11:30 17:08 21:28 WBC (3.8-10.6) k/uL RBC (4.30-5.90) m/uL Hgb (13.0-17.5) gm/dL Hct (39.0-53.0) % MCV (80.0-100.0) fL MCH (25.0-35.0) pg MCHC (31.0-37.0) g/dL RDW (11.5-15.5) % Plt Count (150-450) k/uL MPV Neutrophils % % Lymphocytes % % Monocytes % % Eosinophils % % Basophils % % Neutrophils # (1.3-7.7) k/uL Lymphocytes # (1.0-4.8) k/uL Monocytes # (0-1.0) k/uL Eosinophils # (0-0.7) k/uL Basophils # (0-0.2) k/uL ESR (0-15) mm/hr Sodium (137-145) mmol/L Potassium (3.5-5.1) mmol/L Chloride (98-107) mmol/L Carbon Dioxide (22-30) mmol/L Anion Gap mmol/L BUN (9-20) mg/dL Creatinine (0.66-1.25) mg/dL Est GFR (CKD-EPI)AfAm (>60 ml/min/1.73 sqM) Est GFR (CKD-EPI)NonAf (>60 ml/min/1.73 sqM) Glucose (74-99) mg/dL POC Glucose (mg/dL) 184 H 255 H 198 H (75-99) mg/dL POC Glu Court Messenger ID Paula Partida Carol Bell, Michele Estimated [address] Glu mg/dL Hemoglobin A1c (4.0-6.0) % Lactic Ac Sepsis Rflx Plasma Lactic Acid Luis (0.7-2.0) mmol/L Calcium (8.4-10.2) mg/dL Total Bilirubin (0.2-1.3) mg/dL AST (17-59) U/L ALT (4-49) U/L Alkaline Phosphatase (38-126) U/L C-Reactive Protein (<1.0) mg/dL Total Protein (6.3-8.2) g/dL Albumin (3.5-5.0) g/dL Coronavirus (PCR) (Not Detected) Disposition Is patient prescribed a controlled substance at d/c from ED?: No Time of Disposition: 18:32 <Waqas Campoverde - Last Filed: 01/13/21 18:31> <Enid Santana - Last Filed: 01/25/21 17:45> Clinical Impression: Cellulitis Disposition: ADMITTED IP TO THIS HOSP Condition: Stable
[2021-01-13 17:17] LABS: Basophils # (A) 0.1 k/uL (0-0.2); Basophils % (A) 0 %; Eosinophils # (A) 0.1 k/uL (0-0.7); Eosinophils % (A) 0 %; HCT 45.3 % (39.0-53.0); Lymphocytes % (A) 5 %; MCH 30.6 pg (25.0-35.0); MCHC 33.2 g/dL (31.0-37.0); MCV 92.4 fL (80.0-100.0); Monocytes # (A) 0.6 k/uL (0-1.0); Monocytes % (A) 3 %; Neutrophils # (A) 15.7 k/uL (1.3-7.7); Neutrophils % (A) 89 %; Platelet Count 283 k/uL (150-450); RBC 4.91 m/uL (4.30-5.90); RDW 13.7 % (11.5-15.5); WBC 17.5 k/uL (3.8-10.6)
--- NOTE | 2021-01-13 17:18 | XR ---
EXAMINATION TYPE: XR tibia fibula RT DATE OF EXAM: 01/13/2021 COMPARISON: NONE HISTORY: Swelling and redness TECHNIQUE: 4 views FINDINGS: Tibia and fibula appear intact. I see no fracture nor dislocation. There is diffuse subcuta neous edema around the entire lower leg. IMPRESSION: Soft tissue swelling. No fracture. No sign of osteomyelitis.
[2021-01-13 17:31] LABS: Albumin 4.3 g/dL (3.5-5.0); Calcium 9.8 mg/dL (8.4-10.2); Potassium 3.9 mmol/L (3.5-5.1); Total Bilirubin 0.7 mg/dL (0.2-1.3); Total Protein 7.8 g/dL (6.3-8.2)
[2021-01-13] MEDS ORDERED: SODIUM CHLORIDE 0.9% 1,000 ML IV STA (17:44)
[2021-01-13 17:48] LABS: C Reactive Protein 15.4 mg/dL (<1.0)
[2021-01-13 18:26] LABS: Erythrocyte Sedimentation Rate 78 mm/hr (0-15)
[2021-01-13] MEDS ORDERED: NALOXONE 0.4 MG/ML 1 ML VIAL IV PRN (18:28)
[2021-01-13] MEDS ORDERED: VANCOMYCIN IV PER PHARMACY 1 EACH MISC MISCELLANE PRN (18:31)
[2021-01-13] MEDS ORDERED: VANCOMYCIN 2,250 MG in SODIUM CHLORIDE 0.9% 500 ML 500 ML IVPB ONE (19:00)
[2021-01-13] MEDS: SODIUM CHLORIDE 0.9% 1,000 ML IV SCH (19:25)
[2021-01-14 07:18] LABS: Glucose,Whole Blood 202 mg/dL (75-99)
[2021-01-14] MEDS: Empagliflozin [Jardiance] PO SCH (09:16)
[2021-01-14] MEDS: metFORMIN 500 MG TAB PO SCH (09:18)
[2021-01-14] MEDS: POTASSIUM CHLORIDE ER 10 MEQ TAB.ER.PRT PO SCH ×2 (09:18→22:15)
[2021-01-14] MEDS: LEVOTHYROXINE 112 MCG TAB PO SCH (09:18)
[2021-01-14] MEDS: FLECAINIDE 50 MG TAB PO SCH ×2 (09:19→22:14)
[2021-01-14] MEDS: lisinopriL 5 MG TAB PO SCH (09:19)
[2021-01-14] MEDS: METOPROLOL TARTRATE 50 MG TAB PO SCH ×2 (09:20→22:15)
[2021-01-14] MEDS: FUROSEMIDE 40 MG TAB PO SCH ×2 (09:20→17:38)
[2021-01-14] MEDS: LINAGLIPTIN 5 MG TABLET PO SCH (09:20)
[2021-01-14] MEDS: SODIUM CHLORIDE 0.9% 1,000 ML IV SCH ×2 (09:25→22:16)
[2021-01-14 11:32] LABS: Glucose,Whole Blood 184 mg/dL (75-99)
[2021-01-14] MEDS: VANCOMYCIN 2,250 MG in SODIUM CHLORIDE 0.9% 500 ML 500 ML IVPB SCH (12:35)
[2021-01-14] MEDS: INSULIN ASPART (NovoLOG) 100 UNIT/ML VIAL SQ SCH ×3 (12:37→22:14)
[2021-01-14] MEDS ORDERED: ALPRAZolam 0.25 MG TAB PO PRN (13:56)
[2021-01-14] MEDS ORDERED: HYDROcodone/APAP 5-325MG 1 EACH TAB PO PRN (13:56)
[2021-01-14] MEDS ORDERED: ACETAMINOPHEN TAB 500 MG TAB PO PRN (13:56)
[2021-01-14] MEDS ORDERED: TEMAZEPAM 15 MG CAP PO PRN (13:56)
--- NOTE | 2021-01-14 14:57 | HP ---
HISTORY AND PHYSICAL DATE OF SERVICE: 01/14/2021 CHIEF COMPLAINT: Right leg infection and blisters, cellulitis, failure of outpatient treatment. HISTORY OF PRESENT ILLNESS: This 65-year-old gentleman with a past medical history of multiple medical problems including history of CAD, history of CHF, diabetes type 2, hypertension, hyperlipidemia, history of SVT, being followed by Dr. Minna Sousa in the outpatient setting initially had left leg cellulitis which was apparently treated in the urgent care center which improved significantly, but currently the patient is on several rounds of antibiotics and because of nonimprovement and some weeping and pain and infection of the right leg, the patient came to [facility] and admitted for further evaluation and treatment. Patient is also seeing a public affairs officer in [facility] according to him. There is no history of fever, rigors or chills. No history of headache, loss of consciousness or seizures at this time. PAST MEDICAL HISTORY: History of past medical history of CAD, CHF, history of hypertension, hyperlipidemia, history of SVT. MEDICATIONS: Home medications prior to admission, Lipitor, Ecotrin, Keflex, Zestril, Synthroid, Lasix, Zaroxolyn, K-Dur, Lopressor, Janumet, flecainide and Jardiance. Doses reviewed. ALLERGIES: None. FAMILY HISTORY: No history of heart disease or strokes in the family. SOCIAL HISTORY: No history of smoking. No history of alcohol intake. REVIEW OF SYSTEMS: ENT: No diminished vision. No diminished hearing. CARDIO system: As mentioned earlier. RESPIRATORY: No cough. GI: As mentioned earlier. : No dysuria. NERVOUS SYSTEM: No numbness or weakness. ALLERGY/IMMUNOLOGY: No asthma or hayfever. MUSCULOSKELETAL as mentioned earlier. HEMATOLOGY/ONCOLOGY: No history of anemia. ENDOCRINE: No diabetes. CONSTITUTIONAL: As mentioned earlier. DERMATOLOGY: As mentioned earlier. RHEUMATOLOGY: Negative. PSYCHIATRY: As mentioned. PHYSICAL EXAMINATION: Alert and oriented times three. Pulse is 68. Blood pressure 101/61, respiration 17, temperature 98 degrees, pulse ox 92% on room air. HEENT is conjunctivae normal. Oral mucosa moist. NECK is no jugular venous distention. No carotid bruit. No lymph node enlargement. CARDIOVASCULAR systems: S1, S2 muffled. RESPIRATION: Breath sounds diminished in the bases. A few scattered rhonchi and crackles. ABDOMEN: Soft, nontender. No mass palpable. LEGS: Significant infection, cellulitis and oozing, some pain and tenderness on the right leg. Left leg healed cellulitis present. NERVOUS SYSTEM: Higher functions as mentioned. Moves all 4 limbs. Otherwise some sensory changes also. No focal motor deficits. SKIN as mentioned. JOINTS: No active deforming arthropathy. LYMPHATICS: No lymph nodes palpable in the neck, axillae or groin. LABS: WBC 17.5, sodium 130, potassium ntd, creatinine is 1.31. The baseline creatinine 0.74. CRP is 15.4. ASSESSMENT: 1. Severe right leg cellulitis with failure of outpatient treatment. 2. Increased WBC. 3. Hyponatremia. 4. Increased creatinine with acute renal failure with acute tubular necrosis. 5. Elevated blood glucose with possible diabetes type 2. 6. History of coronary artery disease. 7. History of congestive heart failure. 8. Hypertension. 9. Hyperlipidemia. 10.History of supraventricular tachycardia. 11.History of aortic valve replacement. 12.History of degenerative joint disease. 13.Obesity with body mass index 44.6. 14.FULL CODE. RECOMMENDATIONS AND DISCUSSION: In this 65-year-old gentleman who presented with multiple complex medical issues, we will monitor the patient closely, continue the current medications, management and symptomatic treatment. Continue broad-spectrum IV antibiotics. We will initiate IV vancomycin and I would also recommend infectious disease evaluation, local treatment, culture sensitivity. Resume the home medication. Monitor blood sugars closely. Check hemoglobin A1c. Prognosis guarded because of multiple complex medical issues. Further recommendations to follow. A copy of dictation being forwarded to Dr. Minna Sousa who is the primary physician. MMPHILLL / BILLN: [id number] / MTDD
[2021-01-14 17:13] LABS: Glucose,Whole Blood 255 mg/dL (75-99)
[2021-01-14 21:30] LABS: Glucose,Whole Blood 198 mg/dL (75-99)
[2021-01-14] MEDS: HEPARIN SODIUM,PORCINE/PF 5,000 UNIT/0.5 ML SYRINGE SQ SCH (22:14)
[2021-01-14] MEDS: ASPIRIN 81 MG PO SCH (22:14)
[2021-01-14] MEDS: ATORVASTATIN 20 MG TAB PO SCH (22:14)
--- NOTE | 2021-01-14 23:38 | P.CONS ---
History of Present Illness - Reason for Consult Consult date: 01/14/21 Right lower extremity cellulitis Requesting physician: Fransisco Paige - Chief Complaint right leg swelling and redness x few days - History of Present Illness Patient is a 65-year male presenting to the ER for evaluation of right lower extremity swelling and redness this patient had did have previous episode of right lower extremity cellulitis this episode started about a week ago, patient has been treated with antibiotic by his primary care physician without any improvement, patient mention he did have diffuse swelling and redness with slight back now with formation of blisters and some of her weeping edema he did have something more of a dull aching to diffuse and no radiation, the patient denies high-grade fever or chills patient be started on Keflex 500 mg p.o. every 6 hours the day of presentation to the hospital patient mention he woke up and looked up in [facility] noticed to have diffuse rash for the patient is in the hospital patient denies having any mucous membrane lesion with the symptom the patient was evaluated by ER physician on arrival to the ER patient was afebrile patient did have white count of 17.5 with a left shift his creatinine was mild elevated 1.31, the patient was negative patient did have x-rays of the tibia and fibula with no evidence of any bony fracture patient was started on vancomycin has been admitted to hospital infectious was consulted for further management of antibiotic therapy Review of Systems Positive point has been mentioned in the HPI rest of the systems are negative Past Medical History Past Medical History: Coronary Artery Disease (CAD), Heart Failure, Diabetes Mellitus, Hyperlipidemia, Hypertension Additional Past Medical History / Comment(s): SVT, History of Any Multi-Drug Resistant Organisms: None Reported Past Surgical History: Orthopedic Surgery Additional Past Surgical History / Comment(s): aortic valve replacement, Past Psychological History: No Psychological Hx Reported Smoking Status: Never smoker Past Alcohol Use History: None Reported Past Drug Use History: None Reported Medications and Allergies Home Medications Medication Instructions Recorded Confirmed Type Aspirin EC [Ecotrin Low Dose] 81 mg PO HS 10/05/19 01/13/21 History Atorvastatin [Lipitor] 20 mg PO HS 10/05/19 01/13/21 History sitaGLIPtin PHOS/metFORMIN HCL 1 tab PO DAILY 10/05/19 01/13/21 History [Janumet 50-1,000 mg Tablet] Empagliflozin [Jardiance] 25 mg PO DAILY 01/13/21 01/13/21 History Flecainide Acetate 100 mg PO BID 01/13/21 01/13/21 History Furosemide [Lasix] 40 mg PO BID 01/13/21 01/13/21 History Levothyroxine Sodium [Synthroid] 112 mcg PO DAILY 01/13/21 01/13/21 History Metoprolol Tartrate [Lopressor] 50 mg PO BID 01/13/21 01/13/21 History Potassium Chloride ER [K-Dur 10] 10 meq PO BID 01/13/21 01/13/21 History lisinopriL [Zestril] 5 mg PO DAILY 01/13/21 01/13/21 History metOLazone [Zaroxolyn] 5 mg PO Q48H 01/13/21 01/13/21 History Cephalexin [Keflex] 500 mg PO Q6HR 10 Days #40 cap 01/18/21 Rx Insulin Detemir (Levemir) [Levemir] 15 unit SQ HS #1 syr 01/18/21 Rx Multivitamins, Thera [Multivitamin 1 each PO DAILY@1200 #30 tab 01/18/21 Rx (formulary)] Allergies Allergy/AdvReac Type Severity Reaction Status Date / Time No Known Allergies Allergy Verified 01/13/21 20:28 Physical Exam Vitals: Vital Signs Temp Pulse Pulse Resp BP BP Pulse Ox 01/14/21 05:08 97.9 F 71 16 120/70 94 L 01/14/21 01:32 98.1 F 63 24 118/57 100 01/14/21 00:32 80 16 116/64 96 01/13/21 19:04 72 18 111/68 95 01/13/21 17:44 74 18 100/57 99 01/13/21 15:15 97.8 F 79 18 97/52 95 Intake and Output 01/13/21 01/14/21 01/14/21 22:59 06:59 14:59 Intake Total 1000 Balance 1000 Intake: Oral 1000 Other: Voiding Method Toilet Urinal # Voids 400 Weight 141.067 kg GENERAL DESCRIPTION: Elderly male lying in bed, no distress. No tachypnea or accessory muscle of respiration use. HEENT: Shows Pallor , no scleral icterus. Oral mucous membrane is dry. No pharyngeal erythema or thrush NECK: Trachea central, no thyromegaly. LUNGS: Unlabored breathing. Clear to auscultation anteriorly. HEART: S1, S2, regular rate and rhythm. No loud murmur ABDOMEN: Soft, no tenderness , guarding or rigidity, no organomegaly EXTREMITIES: Diffuse swelling redness of the right leg no blisters and no drainage SKIN: No rash, no masses palpable. NEUROLOGICAL: The patient is awake, alert, oriented x3, mood and affect normal. Results CBC & Chem 7: 01/17/21 04:22 01/17/21 04:22 Labs: Abnormal Lab Results - Last 24 Hours (Table) 01/13/21 01/13/21 01/13/21 Range/Units 16:43 16:43 16:43 WBC 17.5 H (3.8-10.6) k/uL Neutrophils # 15.7 H (1.3-7.7) k/uL ESR 78 H (0-15) mm/hr Sodium 134 L (137-145) mmol/L Chloride 90 L (98-107) mmol/L BUN 54 H (9-20) mg/dL Creatinine 1.31 H (0.66-1.25) mg/dL Glucose 250 H (74-99) mg/dL POC Glucose (mg/dL) (75-99) mg/dL Plasma Lactic Acid Luis 2.1 H* (0.7-2.0) mmol/L C-Reactive Protein 15.4 H (<1.0) mg/dL 01/14/21 Range/Units 07:16 WBC (3.8-10.6) k/uL Neutrophils # (1.3-7.7) k/uL ESR (0-15) mm/hr Sodium (137-145) mmol/L Chloride (98-107) mmol/L BUN (9-20) mg/dL Creatinine (0.66-1.25) mg/dL Glucose (74-99) mg/dL POC Glucose (mg/dL) 202 H (75-99) mg/dL Plasma Lactic Acid Luis (0.7-2.0) mmol/L C-Reactive Protein (<1.0) mg/dL Assessment and Plan Assessment: -patient with acute right lower extremity cellulitis this patient did have diffuse swelling redness with evidence of blister formation clinically suspicious for streptococcal cellulitis failing outpatient oral Keflex and the patient reporting rash possibly related to the Keflex (1) Cellulitis Status: Acute Code(s): L03.90 - CELLULITIS, UNSPECIFIED SNOMED Code(s): 340764051 Plan: 1-marked the area of the redness 2-vancomycin pharmacy to dose with a target trough of 15 while watching her kidney function and Vanco trough closely. 3-local wound care to the right leg with dry Aquacel silver dressing the blister area followed by Pawan wrap from just above the toe to below the knee to be change daily We will follow on clinical condition and cultures to further adjust medication if needed Thank you for this consultation we will follow the patient along with you Time with Patient: Greater than 30
[2021-01-15] MEDS: VANCOMYCIN 2,250 MG in SODIUM CHLORIDE 0.9% 500 ML 500 ML IVPB SCH ×2 (04:21→21:05)
[2021-01-15 05:26] LABS: Hemoglobin A1C 8.8 % (4.0-6.0)
[2021-01-15 06:22] LABS: Basophils # (A) 0.1 k/uL (0-0.2); Basophils % (A) 1 %; Eosinophils # (A) 0.2 k/uL (0-0.7); Eosinophils % (A) 1 %; HCT 48.4 % (39.0-53.0); HGB 15.9 gm/dL (13.0-17.5); Lymphocytes # (A) 1.7 k/uL (1.0-4.8); Lymphocytes % (A) 13 %; MCHC 32.8 g/dL (31.0-37.0); MCV 94.6 fL (80.0-100.0); Mean Platelet Volume 6.8; Monocytes # (A) 0.7 k/uL (0-1.0); Monocytes % (A) 5 %; Neutrophils # (A) 10.5 k/uL (1.3-7.7); Neutrophils % (A) 78 %; Platelet Count 272 k/uL (150-450); RBC 5.12 m/uL (4.30-5.90); RDW 13.7 % (11.5-15.5); WBC 13.4 k/uL (3.8-10.6)
[2021-01-15 06:31] LABS: African American GFR (CKD) 68 (>60 ml/min/1.73 sqM); Anion Gap 11 mmol/L; Blood Urea Nitrogen 40 mg/dL (9-20); Calcium 9.1 mg/dL (8.4-10.2); Carbon Dioxide 29 mmol/L (22-30); Chloride 96 mmol/L (98-107); Glucose 201 mg/dL (74-99); Non-African American GFR(CKD) 59 (>60 ml/min/1.73 sqM); Potassium 3.6 mmol/L (3.5-5.1); Sodium 136 mmol/L (137-145)
[2021-01-15 07:02] LABS: Glucose,Whole Blood 203 mg/dL (75-99)
--- NOTE | 2021-01-15 08:36 | CDI ---
Documentation Clarification Form Date: 01/15/2021 08:16:36 AM From: Lynette Soni RN CCDS Admit Date: 01/14/2021 11:27:00 PM Patient Name: Darwin Garrido Visit Number: [id number] Discharge Date: ATTENTION: The Clinical Documentation Specialists (CDI) and [facility] Coding Staff appreciate your assistance in clarifying documentation. Please respond to the clarification below the line at the bottom and electronically sign. The CDI & [facility] Coding staff will review the response and follow-up if needed. Please note: Queries are made part of the Legal Health Record. If you have any questions, please contact the author of this message via ITS. Dr. Fransisco Paige Your patient has the documented diagnosis of unspecified CHF 01/14 H&P past medical history. Additional information regarding the type and acuity of CHF is requested. History/Risk Factors: 65-year-old male presents to the ED for failure of outpatient treatment of cellulitis to the left leg. The leg is now painful with weeping. Medical History: CAD, CHF DM2 and HTN. Clinical Indicators: VS/Pulse OX 01/13: B/P 97/52; HR 79; Temp 97.8 F Oral; RR 18; SpO2 95% room air Echocardiogram Results 10/06/19: Let ventricular systolic function is normal with, an EF between 55-60%. Right ventricle is mildly enlarged. Mild mitral annular calcification present. Mild mitral regurgitation is present. There is moderate pulmonary hypertension. Treatment: 01/14 Lasix 40mg PO BID KATHI; 01/14 Lopressor 50mg PO BID KATHI. In your professional opinion, can you please clarify the [acuity and type] of CHF if known? [ ] Chronic Diastolic Heart Failure (preserved EF) [ ] Chronic Systolic & Diastolic Heart Failure [ ] Heart failure ruled out [ ] Other, please specify [ ] Unable to determine (Template Last Revised: October 2020) Chronic Diastolic Heart Failure (preserved EF) MTDD
[2021-01-15] MEDS: HEPARIN SODIUM,PORCINE/PF 5,000 UNIT/0.5 ML SYRINGE SQ SCH ×2 (08:55→20:57)
[2021-01-15] MEDS: metFORMIN 500 MG TAB PO SCH (08:55)
[2021-01-15] MEDS: metOLazone 5 MG TAB PO SCH (08:55)
[2021-01-15] MEDS: FUROSEMIDE 40 MG TAB PO SCH ×2 (08:55→16:01)
[2021-01-15] MEDS: METOPROLOL TARTRATE 50 MG TAB PO SCH ×2 (08:55→20:57)
[2021-01-15] MEDS: INSULIN ASPART (NovoLOG) 100 UNIT/ML VIAL SQ SCH ×4 (08:55→21:02)
[2021-01-15] MEDS: LINAGLIPTIN 5 MG TABLET PO SCH (08:55)
[2021-01-15] MEDS: POTASSIUM CHLORIDE ER 10 MEQ TAB.ER.PRT PO SCH ×2 (08:55→20:57)
[2021-01-15] MEDS: FLECAINIDE 50 MG TAB PO SCH ×2 (08:56→20:57)
[2021-01-15] MEDS: lisinopriL 5 MG TAB PO SCH (08:56)
[2021-01-15] MEDS: LEVOTHYROXINE 112 MCG TAB PO SCH (08:56)
[2021-01-15] MEDS ORDERED: VANCOMYCIN IV PER PHARMACY 1 EACH MISC MISCELLANE PRN (09:24)
--- NOTE | 2021-01-15 09:31 | CDI ---
Documentation Clarification Form Date: 01/15/2021 08:58:23 AM From: Lynette Soni RN CCDS Admit Date: 01/14/2021 11:27:00 PM Patient Name: Darwin Garrido Visit Number: [id number] Discharge Date: ATTENTION: The Clinical Documentation Specialists (CDI) and [facility] Coding Staff appreciate your assistance in clarifying documentation. Please respond to the clarification below the line at the bottom and electronically sign. The CDI & [facility] Coding staff will review the response and follow-up if needed. Please note: Queries are made part of the Legal Health Record. If you have any questions, please contact the author of this message via ITS. Dr. Fransisco Paige Cellulitis is documented 01/14 H&P. Additional clarification regarding the type of cellulitis is requested. History/risk factors: 65-year-old male presents to the ED for failure of outpatient treatment of cellulitis. Medical History: CHF and DM type 2. Clinical Indicators: Severe right leg cellulitis with failure of outpatient treatment. H&P 01/14 VSS 01/13: B/P 97/52; HR 79; Temp 97.8 F Oral; RR 18; SpO2 95% Room Air 01/13 16:00: Blood glucose 250; 01/14: Point care glucose 202; 184; 255; 198 and 203. Treatment: 01/14 Novolog sliding scale SQ ACHS KATHI; Glucophage 1,000mg PO Daily KATHI Please clarify the type of cellulitis, if known: [ ] Cellulitis due to diabetes [ ] Acute Cellulitis [ ] Chronic Cellulitis [ ] Acute Lymphangitis [ ] Other, please specify: [ ] Unable to determine (Template Last Revised: November 2020) Cellulitis due to diabetes MTDD
[2021-01-15] MEDS: Empagliflozin [Jardiance] PO SCH (10:22)
[2021-01-15 12:29] LABS: Glucose,Whole Blood 159 mg/dL (75-99)
[2021-01-15] MEDS: MULTIVITAMINS, THERA 1 EACH TAB PO SCH (13:14)
[2021-01-15] MEDS: SODIUM CHLORIDE 0.9% 1,000 ML IV SCH (13:17)
[2021-01-15 17:27] LABS: Glucose,Whole Blood 181 mg/dL (75-99)
--- NOTE | 2021-01-15 19:37 | PN ---
PROGRESS NOTE DATE OF SERVICE: 01/15/2021 This 65-year-old gentleman who was admitted with a right leg infection has blisters and pain with failure of outpatient treatment. He is being closely monitored. The patient is on broad-spectrum IV antibiotics. Cultures are negative. No chest pain. No palpitations. No fever. PHYSICAL EXAMINATION: Alert and oriented x3. Pulse 61, blood pressure 102/66, respirations 16, temperature 97.7, pulse ox 94% on room air. HEENT: Conjunctivae normal. Oral mucosa moist. CARDIOVASCULAR SYSTEM: S1, S2 muffled. RESPIRATORY SYSTEM: Breath sounds diminished at the bases. ABDOMEN: Soft, non-tender. Obese. LEGS: Right leg has significant cellulitis which is bandaged. LABS: WBC 13.5, creatinine is 1.26. Accu-Cheks 203. Hemoglobin A1c is pending at this time. ASSESSMENT: 1. Severe right leg cellulitis with ulceration and failure of outpatient treatment. 2. Increased white count. 3. Hyponatremia. 4. Increased creatinine with mild acute renal failure with acute tubular necrosis. 5. Elevated blood glucose with possible diabetes mellitus, type 2. 6. History of coronary artery disease. 7. History of congestive heart failure. 8. Hypertension. 9. Hyperlipidemia. 10.History of supraventricular tachycardia. 11.History of aortic valve replacement. 12.History of degenerative joint disease. 13.History of obesity with a body mass index of 44.6. 14.FULL CODE. RECOMMENDATIONS AND DISCUSSION: I recommend to continue current medications, continue with the monitoring, symptomatic treatment. Continue the antibiotics. Monitor vancomycin level. Guarded prognosis because of the multiple complex medical issues. Further recommendations to follow. MMODL / IJN: [id number] /
[2021-01-15 20:57] LABS: Glucose,Whole Blood 332 mg/dL (75-99)
[2021-01-15] MEDS: ASPIRIN 81 MG PO SCH (20:57)
[2021-01-15] MEDS: ATORVASTATIN 20 MG TAB PO SCH (20:57)
--- NOTE | 2021-01-15 22:40 | PN ---
PROGRESS NOTE DATE OF SERVICE: 01/15/2021 REASON FOR FOLLOWUP: Right lower extremity cellulitis. INTERVAL HISTORY: The patient is currently afebrile. The patient is breathing comfortably. The patient denies having any chest pain, shortness of breath or cough. No nausea, no vomiting, no abdominal pain or any worsening pain to the right lower extremity. PHYSICAL EXAMINATION: Blood pressure is 93/61 with a pulse of 80, temperature 97.7. He is 96% on room air. General description is an elderly male lying in bed in no distress. RESPIRATORY SYSTEM: Unlabored breathing. Clear to auscultation anteriorly. HEART: S1, S2. Regular rate and rhythm. ABDOMEN: Soft. No tenderness. Right lower extremity is currently dressed up. Overall redness slightly decreased. LABS: Hemoglobin 15.3, white count 13.4, BUN of 40, creatinine 1.26. DIAGNOSTIC IMPRESSION AND PLAN: Patient with acute right lower extremity cellulitis, diffuse swelling and redness, failing outpatient oral Keflex therapy, likely because of a burden of disease. Antibiotic will be adjusted to cefazolin 3 grams q.8 hours. Local care to continue with the Pawan wrap and reevaluate the patient tomorrow. Continue supportive care. MMODL / IJN: [id number] / MTDArleen
[2021-01-16] MEDS: SODIUM CHLORIDE 0.9% 1,000 ML IV SCH ×2 (00:44→14:56)
[2021-01-16] MEDS: LEVOTHYROXINE 112 MCG TAB PO SCH (06:06)
[2021-01-16 07:30] LABS: Glucose,Whole Blood 170 mg/dL (75-99)
[2021-01-16] MEDS: METOPROLOL TARTRATE 50 MG TAB PO SCH ×2 (08:29→20:24)
[2021-01-16] MEDS: FUROSEMIDE 40 MG TAB PO SCH ×2 (08:29→14:55)
[2021-01-16] MEDS: POTASSIUM CHLORIDE ER 10 MEQ TAB.ER.PRT PO SCH ×2 (08:30→20:24)
[2021-01-16] MEDS: INSULIN ASPART (NovoLOG) 100 UNIT/ML VIAL SQ SCH ×4 (08:30→20:55)
[2021-01-16] MEDS: LINAGLIPTIN 5 MG TABLET PO SCH (08:30)
[2021-01-16] MEDS: HEPARIN SODIUM,PORCINE/PF 5,000 UNIT/0.5 ML SYRINGE SQ SCH ×2 (08:30→20:24)
[2021-01-16] MEDS: FLECAINIDE 50 MG TAB PO SCH ×2 (08:30→20:24)
[2021-01-16] MEDS: lisinopriL 5 MG TAB PO SCH (08:30)
[2021-01-16] MEDS: metFORMIN 500 MG TAB PO SCH (08:30)
[2021-01-16] MEDS: Empagliflozin [Jardiance] PO SCH (08:37)
--- NOTE | 2021-01-16 12:31 | PN ---
PROGRESS NOTE DATE OF SERVICE: 01/16/2021 REASON FOR FOLLOWUP: Right lower extremity cellulitis. INTERVAL HISTORY: The patient is currently afebrile. Patient is breathing comfortably. The patient denies having any chest pain, shortness of breath. No cough. No nausea, vomiting or abdominal pain. Did mention overall improvement in the right lower extremity swelling and redness. PHYSICAL EXAMINATION: VITAL SIGNS: Blood pressure is 133/71, pulse of 72, temperature 97.7. He is 93% on room air. GENERAL DESCRIPTION: An elderly male up in the chair in no distress. RESPIRATORY SYSTEM: Unlabored breathing, clear to auscultation anteriorly. HEART: S1, S2. Regular rate and rhythm. ABDOMEN: Soft, no tenderness. EXTREMITIES: Right lower extremity is currently dressed. No drainage on the dressing. LABS: No new labs have been obtained today. Culture so far pending. DIAGNOSTIC IMPRESSION AND PLAN: Patient with acute right lower extremity cellulitis with diffuse swelling, redness and blister formation, likely streptococcal disease. The patient to continue cefazolin for another 24 hours while waiting for the culture to finalize for transition to oral antibiotics. Dressing should not be changed today. The patient will be reevaluated. Continue supportive care. MMODL / IJN: [id number] /
[2021-01-16 12:52] LABS: Glucose,Whole Blood 192 mg/dL (75-99)
[2021-01-16] MEDS: MULTIVITAMINS, THERA 1 EACH TAB PO SCH (13:27)
[2021-01-16] MEDS: ceFAZolin 3 GM in SODIUM CHLORIDE 0.9% 100 ML IVPB SCH (15:07)
[2021-01-16 17:01] LABS: Glucose,Whole Blood 177 mg/dL (75-99)
--- NOTE | 2021-01-16 17:26 | PN ---
PROGRESS NOTE DATE OF SERVICE: 01/16/2021 This 65-year-old gentleman who was admitted with right leg cellulitis and ulceration had failed outpatient treatment. The patient has significant ulceration. The cultures are negative so far. Patient is on empiric antibiotics and local dressing. No chest pain. No palpitations. No fever. PHYSICAL EXAMINATION: Alert and oriented x3. Pulse 63, blood pressure 102/75, respirations 16, temperature 97.6, pulse ox 94% on room air. HEENT: Conjunctivae normal. NECK: No jugular venous distention. CARDIOVASCULAR SYSTEM: S1, S2 muffled. RESPIRATORY SYSTEM: Breath sounds diminished at the bases. No rhonchi. No crackles. ABDOMEN: Soft, non-tender. LEGS: Right leg swelling and cellulitis present. Right foot swelling also present. LABS: Accu-Cheks 192. WBC 13.4. Sodium 136, creatinine is 1.26. ASSESSMENT: 1. Severe right leg cellulitis as well as ulceration with failure of outpatient treatment. 2. Increased white count. 3. Hyponatremia. 4. Increased creatinine with mild acute renal failure with acute tubular necrosis. 5. Elevated blood glucose with possible diabetes mellitus, type 2. 6. History of coronary artery disease. 7. History of congestive heart failure, ejection fraction unknown. 8. Hypertension. 9. Hyperlipidemia. 10.History of supraventricular tachycardia. 11.History of aortic valve replacement. 12.History of degenerative joint disease. 13.History of obesity with body mass index of 44.6. RECOMMENDATIONS AND DISCUSSION: I recommend to continue current medications, continue with the monitoring, symptomatic treatment, continue with antibiotics. Repeat labs. Await final culture report. Local dressing. Closely follow with Infectious Disease. Further recommendations to follow. MMODL / IJN: [id number] /
[2021-01-16] MEDS: ASPIRIN 81 MG PO SCH (20:24)
[2021-01-16] MEDS: ATORVASTATIN 20 MG TAB PO SCH (20:24)
[2021-01-16 20:54] LABS: Glucose,Whole Blood 246 mg/dL (75-99)
[2021-01-17] MEDS: ceFAZolin 3 GM in SODIUM CHLORIDE 0.9% 100 ML IVPB SCH ×4 (00:29→23:43)
[2021-01-17] MEDS: SODIUM CHLORIDE 0.9% 1,000 ML IV SCH ×2 (00:30→16:53)
[2021-01-17] MEDS: LEVOTHYROXINE 112 MCG TAB PO SCH (06:01)
[2021-01-17 06:09] LABS: HCT 44.4 % (39.0-53.0); HGB 14.4 gm/dL (13.0-17.5); MCH 30.5 pg (25.0-35.0); MCHC 32.3 g/dL (31.0-37.0); MCV 94.2 fL (80.0-100.0); Mean Platelet Volume 7.3; Platelet Count 320 k/uL (150-450); RBC 4.71 m/uL (4.30-5.90); RDW 14.1 % (11.5-15.5); WBC 15.8 k/uL (3.8-10.6)
[2021-01-17 07:11] LABS: Band Neutrophils % 6 %; Eosinophils # (M) 0.32 k/uL (0-0.7); Lymphocytes # (M) 3.16 k/uL (1.0-4.8); Metamyelocytes # (M) 0.47 k/uL (0); Metamyelocytes % 3 %; Monocytes # (M) 0.63 k/uL (0-1.0); Myelocytes # (M) 0.16 k/uL (0); Myelocytes % 1 %; Neutrophils % (M) 66 %; Nucleated Red Blood Cells 0 /100 WBC (0-0); Total Cells Counted 200
[2021-01-17 07:13] LABS: Anisocytosis (M) Present; Polychromasia Present
[2021-01-17 07:41] LABS: Glucose,Whole Blood 217 mg/dL (75-99)
[2021-01-17] MEDS: METOPROLOL TARTRATE 50 MG TAB PO SCH (08:10)
[2021-01-17] MEDS: HEPARIN SODIUM,PORCINE/PF 5,000 UNIT/0.5 ML SYRINGE SQ SCH ×2 (08:10→20:21)
[2021-01-17] MEDS: POTASSIUM CHLORIDE ER 10 MEQ TAB.ER.PRT PO SCH ×2 (08:11→20:21)
[2021-01-17] MEDS: FLECAINIDE 50 MG TAB PO SCH ×2 (08:11→20:49)
[2021-01-17] MEDS: FUROSEMIDE 40 MG TAB PO SCH ×2 (08:11→16:45)
[2021-01-17] MEDS: metFORMIN 500 MG TAB PO SCH (08:11)
[2021-01-17] MEDS: INSULIN ASPART (NovoLOG) 100 UNIT/ML VIAL SQ SCH ×4 (08:11→20:21)
[2021-01-17] MEDS: lisinopriL 5 MG TAB PO SCH (08:12)
[2021-01-17] MEDS: LINAGLIPTIN 5 MG TABLET PO SCH (08:12)
[2021-01-17] MEDS: metOLazone 5 MG TAB PO SCH (08:12)
[2021-01-17 10:32] LABS: African American GFR (CKD) 65.4 (60.0-200.0); Anion Gap 11.4 mmol/L (4.00-12.00); BUN/Creat Ratio 29.23 Ratio (12.00-20.00); Calcium 8.4 mg/dL (8.7-10.3); Carbon Dioxide 29.6 mmol/L (21.6-31.8); Non-African American GFR(CKD) 56.5 (60.0-200.0); Potassium 3.8 mmol/L (3.5-5.5)
[2021-01-17 12:26] LABS: Glucose,Whole Blood 159 mg/dL (75-99)
[2021-01-17] MEDS: Empagliflozin [Jardiance] PO SCH (12:26)
[2021-01-17] MEDS: MULTIVITAMINS, THERA 1 EACH TAB PO SCH (12:30)
--- NOTE | 2021-01-17 14:51 | PN ---
PROGRESS NOTE DATE OF SERVICE: 01/17/2021 REASON FOR FOLLOWUP: Right lower extremity cellulitis. INTERVAL HISTORY: The patient is currently afebrile. Patient is breathing comfortably. No chest pain, shortness of breath, cough, no abdominal pain. Overall pain and discomfort currently has decreased in intensity. PHYSICAL EXAMINATION: VITAL SIGNS: Blood pressure 106/69, pulse of 61, temperature 97.7. He is 94% on room air. GENERAL DESCRIPTION: An elderly male up in the chair in no distress. RESPIRATORY SYSTEM: Unlabored breathing, clear to auscultation anteriorly. HEART: S1, S2. Regular rate and rhythm. ABDOMEN: Soft, no tenderness. EXTREMITIES: Right leg swelling has slightly decreased. LABS: White count elevated at 15,000. DIAGNOSTIC IMPRESSION AND PLAN: Patient with right lower extremity cellulitis, extensive, with diffuse swelling and redness likely streptococcal disease. The patient to continue with cefazolin 3 gram every 8 hours for another 24 hours. Local care with dry Aquacel Silver dressing and Pawan wrap and re-evaluate the patient tomorrow. MMODL / IJN: [id number] /
[2021-01-17 17:23] LABS: Glucose,Whole Blood 163 mg/dL (75-99)
[2021-01-17 20:03] LABS: Glucose,Whole Blood 295 mg/dL (75-99)
[2021-01-17] MEDS: ASPIRIN 81 MG PO SCH (20:21)
[2021-01-17] MEDS: ATORVASTATIN 20 MG TAB PO SCH (20:21)
[2021-01-17] MEDS ORDERED: INSULIN DETEMIR (LEVEMIR) 100 UNIT/ML SYR SQ SCH (21:00)
--- NOTE | 2021-01-17 21:58 | PN ---
PROGRESS NOTE DATE OF SERVICE: 01/17/2021 This 65-year-old gentleman who was admitted after significant right leg cellulitis on broad-spectrum IV antibiotics. Cultures are negative so far. Dr. Hawk has seen the patient and most likely streptococcal disease was suspected. Cefazolin, local care with core cell silver dressing and Pawan wrap is also recommended. No chest pain. No palpitations. No fever. PHYSICAL EXAMINATION: Alert and oriented times three. Pulse 61, blood pressure 106/60, respirations 16, temperature 97.7, pulse ox 94% on room air. HEENT: Conjunctivae normal. NECK: No JVD. CARDIOVASCULAR: S1, S2 muffled. RESPIRATORY: Breath sounds diminished at the bases. No rhonchi. No crackles. ABDOMEN: Soft, nontender. LEGS: Significant right leg cellulitis. LABS: Accu-Cheks 217, 115, 157. The hemoglobin A1c was only 8.8. ASSESSMENT: 1. Severe right leg cellulitis as well as ulceration with failure of outpatient treatment. 2. Possible streptococcal. 3. Increased WBC. 4. Hyponatremia. 5. Increased creatinine with mild acute renal failure, acute tubular necrosis present on admission. 6. Elevated blood glucose with possible diabetes type 2. 7. History of coronary artery disease. 8. History of congestive heart failure, ejection fraction unknown. 9. History of hypertension. 10.Hyperlipidemia. 11.Supraventricular tachycardia. 12.History of aortic valve replacement. 13.History of degenerative joint disease. 14.Obesity with body mass index 44.0. RECOMMENDATIONS AND DISCUSSION: I recommend to continue current medications, management and symptomatic treatment. Otherwise, at this time, I recommend continue the antibiotics. The patient is on Cefazolin. Cultures are negative so far. Continue the rest of the medications, home medications. The patient is on Tradjenta. We will continue to monitor. Further recommendations to follow. MMODL / IJN: [id number] /
[2021-01-18] MEDS: LEVOTHYROXINE 112 MCG TAB PO SCH (05:46)
[2021-01-18 07:43] LABS: Glucose,Whole Blood 195 mg/dL (75-99)
[2021-01-18] MEDS: LINAGLIPTIN 5 MG TABLET PO SCH (08:22)
[2021-01-18] MEDS: lisinopriL 5 MG TAB PO SCH (08:22)
[2021-01-18] MEDS: POTASSIUM CHLORIDE ER 10 MEQ TAB.ER.PRT PO SCH (08:22)
[2021-01-18] MEDS: FUROSEMIDE 40 MG TAB PO SCH ×2 (08:22→15:31)
[2021-01-18] MEDS: metFORMIN 500 MG TAB PO SCH (08:22)
[2021-01-18] MEDS: INSULIN ASPART (NovoLOG) 100 UNIT/ML VIAL SQ SCH ×2 (08:22→13:03)
[2021-01-18] MEDS: FLECAINIDE 50 MG TAB PO SCH (08:23)
[2021-01-18] MEDS: Empagliflozin [Jardiance] PO SCH (08:23)
[2021-01-18] MEDS: HEPARIN SODIUM,PORCINE/PF 5,000 UNIT/0.5 ML SYRINGE SQ SCH (08:23)
[2021-01-18] MEDS ORDERED: METOPROLOL TARTRATE 25 MG TAB PO SCH (09:00)
[2021-01-18] MEDS: ceFAZolin 3 GM in SODIUM CHLORIDE 0.9% 100 ML IVPB SCH ×2 (11:10→15:31)
[2021-01-18 11:49] LABS: Glucose,Whole Blood 173 mg/dL (75-99)
[2021-01-18 12:05] VITALS: BP 102/65; PULSE 67; RESP 20; TEMP 98.2
[2021-01-18] MEDS: MULTIVITAMINS, THERA 1 EACH TAB PO SCH (13:03)
--- NOTE | 2021-01-18 17:04 | PN ---
PROGRESS NOTE DATE OF SERVICE: 01/18/2021. REASON FOR FOLLOW UP: Right lower extremity cellulitis. INTERVAL HISTORY: Patient is currently afebrile. The patient is breathing comfortably. The patient denies having any chest pain, shortness of breath or cough. No abdominal pain. Overall pain to right leg has decreased in intensity. PHYSICAL EXAMINATION: Blood pressure is 102/65, pulse 87, temperature 98.2. He is 95% on room air. General description: The patient is an elderly male up in the chair in no distress. Respiratory system: Unlabored breathing, clear to auscultation anteriorly. Heart S1, S2. Regular rate and rhythm. ABDOMEN is soft. Right leg swelling and redness has decreased, minimal drainage. LABS: No new labs have been obtained today. Culture has been negative. DIAGNOSTIC IMPRESSION AND PLAN: Patient with acute right lower extremity cellulitis in this patient who did have diffuse swelling and redness, likely streptococcal disease. Plan is for Keflex 500 mg p.o. q.6 hours for 10 days. Advised to follow [facility] with me next week. Questions and concerns were answered. MMODL / IJN: [id number] /
--- NOTE | 2021-01-18 23:11 | DS ---
DISCHARGE SUMMARY DATE OF SERVICE: 01/18/2021 FINAL DIAGNOSES: 1. Severe right leg cellulitis as well as ulceration with failure of outpatient treatment. 2. Secondary to possible streptococci. 3. Cultures are negative. 4. Increased WBC. 5. Hyponatremia. 6. Increased creatinine with mild acute renal failure with acute tubular necrosis present on admission. 7. Elevated blood glucose with diabetes type 2 uncontrolled with hyperglycemia. 8. History of coronary artery disease. 9. History of congestive heart failure, ejection fraction unknown. 10.Hypertension. 11.Hyperlipidemia. 12.Supraventricular tachycardia. 13.History of aortic valve replacement. 14.History of degenerative joint disease. 15.Obesity with body mass index of 44. DISCHARGE DISPOSITION: The patient being discharged in stable condition. Guarded prognosis. Total time taken 35 minutes. HISTORY OF PRESENT ILLNESS: This 65 -year-old gentleman with past medical history of multiple medical problems, being followed by Dr. Minna Sousa in the outpatient setting, admitted for significant cellulitis. Patient treated with broad-spectrum IV antibiotics. Cultures are negative. Dr. Hawk saw the patient and recommended to complete the p.o. antibiotics to complete a course of antibiotics. On exam, vitals are stable. Cardiovascular S1, S2. Abdomen soft. Nervous system: Right leg cellulitis present. The blood sugar was elevated and small dose of Lantus was initiated at this time. Sugars are 295 coming down to 173. Recommend close followup with Dr. Minna Sousa in the outpatient setting, Accu-Cheks before meals and q.h.s. DISCHARGE ADVICE AND MEDICATIONS: 1. Diet is cardiac. 2. Activity limited until follow up. 3. Follow up with Dr. Hawk in 1-2 weeks. 4. Followup with Dr. Minna Sousa in 2-3 days. 5. CBC, BMP, Accu-Cheks before meals and q.h.s. , results to Dr. Minna Sousa. 6. Ecotrin 81 mg q.h.s. 7. Flecainide 100 mg p.o. b.i.d. 8. Sitagliptin 1 tablet p.o. daily. 9. Jardiance 25 mg p.o. daily. 10.K-Dur 10 mEq p.o. b.i.d. 11.Keflex 500 mg p.o. q.6h for 10 days. 12.Lasix 40 mg p.o. b.i.d. 13.Lipitor 20 mg q.h.s. 14.Lopressor 50 mg p.o. b.i.d. 15.Levothyroxine 112 mcg p.o. daily. 16.Zaroxolyn 5 mg q.48 hours. 17.Zestril 5 mg. 18.Levemir 15 units subcu q.h.s. and to be adjusted in outpatient setting. 19.Multivitamins 1 p.o. daily. Once again the patient discharged in stable condition. Guarded prognosis. MMODL / IJN: [id number] /
== END 2021-01-18 16:30 | disposition home or self-care (01) ==
LOC: EC 15:08 → 5NMEDONC 19:22 → OBSVTOIN 01-14 23:27 → INTOOBSV 01-14 23:27 → UNDODISIN 01-18 16:30
PROVIDERS: ADMIT Hospitalist; ATTEND Hospitalist
DX: E11.628 Type 2 diabetes mellitus with other skin complications (principal); L03.115 Cellulitis of right lower limb; N17.0 Acute kidney failure with tubular necrosis; L97.919 Non-pressure chronic ulcer of unspecified part of right lower leg with unspecified severity; E87.1 Hypo-osmolality and hyponatremia; I11.0 Hypertensive heart disease with heart failure; I50.32 Chronic diastolic (congestive) heart failure; E11.65 Type 2 diabetes mellitus with hyperglycemia; I25.10 Atherosclerotic heart disease of native coronary artery without angina pectoris; E78.5 Hyperlipidemia, unspecified; I47.1 Supraventricular tachycardia; M19.90 Unspecified osteoarthritis, unspecified site; E66.9 Obesity, unspecified; Z68.42 Body mass index [BMI] 45.0-49.9, adult; Z20.822 Contact with and (suspected) exposure to COVID-19; Z79.82 Long term (current) use of aspirin; Z79.84 Long term (current) use of oral hypoglycemic drugs; Z79.890 Hormone replacement therapy; Z79.899 Other long term (current) drug therapy; Z95.2 Presence of prosthetic heart valve
CPT/HCPCS: 96361 ×2; 96366 ×6; 96367; 96372 ×5; 96365; 99284; 36415; 80053; 80048 ×2; 85652; 83605; 85025 ×3; 86140; 87040; 87070; 87205; 87075; 83036; 87635; 73590; G0378 ×6; U0003; U0005; J3370 ×3; J0690 ×3; J1644 ×5; 96374

== ENCOUNTER 2023-01-08 16:39 | Observation (INO) | payer MEDICARE ==
--- NOTE | 2023-01-08 17:26 | ED ---
Chest Pain HPI - General Chief Complaint: Chest Pain Stated Complaint: Tightness in Chest Time Seen by Provider: 01/08/23 17:04 Source: patient, RN notes reviewed, old records reviewed Mode of arrival: ambulatory Limitations: no limitations - History of Present Illness Initial Comments: This is a 67-year-old male to the emergency department for evaluation of chest pain today. Patient upon interrogation denies chest pain CT is having us and tightness on left side of his chest. No radiation. Patient has a complicated medical history and does have history of valve replacement. Abnormal heart rhythm. Patient is heart failure diabetes high blood pressure high cholesterol and history of SVT. Patient has persistent chest pain here in the ER no sh ortness of breath no sweating. MD Complaint: chest pain -: unknown Onset: during rest, during exertion Pain Location: substernal, left chest Pain Radiation: LUE Severity: moderate Quality: tightness, aching, heaviness Consistency: intermittent Improves With: nothing Worsens With: nothing Anginal Symptoms: sense of impending doom Other Symptoms: palpitations Treatments Prior to Arrival: none - Related Data Home Medications Medication Instructions Recorded Confirmed Aspirin EC [Ecotrin Low Dose] 81 mg PO HS 10/05/19 01/08/23 Atorvastatin [Lipitor] 20 mg PO HS 10/05/19 01/08/23 Empagliflozin [Jardiance] 25 mg PO DAILY 01/13/21 01/08/23 Flecainide Acetate [Tambocor] 100 mg PO BID 01/13/21 01/08/23 Furosemide [Lasix] 40 mg PO BID 01/13/21 01/08/23 Metoprolol Tartrate [Lopressor] 50 mg PO BID 01/13/21 01/08/23 Potassium Chloride ER [K-Dur 10] 10 meq PO BID 01/13/21 01/08/23 lisinopriL [Zestril] 5 mg PO DAILY 01/13/21 01/08/23 metOLazone [Zaroxolyn] 5 mg PO Q48H 01/13/21 01/08/23 Dulaglutide [Trulicity] 4.5 mg SQ TH 01/08/23 01/08/23 Ketoconazole 2% Shampoo [Nizoral] 1 applic TOPICAL DAILY PRN 01/08/23 01/08/23 Levothyroxine Sodium [Synthroid] 125 mcg PO DAILY 01/08/23 01/08/23 Pioglitazone [Actos] 45 mg PO DAILY 01/08/23 01/08/23 metFORMIN HCL ER [Glucophage XR] 500 mg PO BID 01/08/23 01/08/23 Allergies Allergy/AdvReac Type Severity Reaction Status Date / Time No Known Allergies Allergy Verified 01/08/23 20:42 Review of Systems ROS Statement: Those systems with pertinent positive or pertinent negative responses have been documented in the HPI. ROS Other: All systems not noted in ROS Statement are negative. EKG Findings - EKG Comments: EKG Findings:: EKG shows sinus 86 DE 139 QRS 166 QTc 477 Past Medical History Past Medical History: Coronary Artery Disease (CAD), Heart Failure, Diabetes Mellitus, Hyperlipidemia, Hypertension Additional Past Medical History / Comment(s): SVT, History of Any Multi-Drug Resistant Organisms: None Reported Past Surgical History: Orthopedic Surgery Additional Past Surgical History / Comment(s): aortic valve replacement, Past Psychological History: No Psychological Hx Reported Smoking Status: Never smoker Past Alcohol Use History: None Reported Past Drug Use History: None Reported General Exam Limitations: no limitations General appearance: alert, in no apparent distress Head exam: Present: atraumatic, normocephalic, normal inspection Eye exam: Present: normal appearance, PERRL, EOMI. Absent: scleral icterus, conjunctival injection, periorbital swelling ENT exam: Present: normal exam, mucous membranes moist Neck exam: Present: normal inspection. Absent: tenderness, meningismus, lymphadenopathy Respiratory exam: Present: normal lung sounds bilaterally. Absent: respiratory distress, wheezes, rales, rhonchi, stridor Cardiovascular Exam: Present: regular rate, normal rhythm, normal heart sounds. Absent: systolic murmur, diastolic murmur, rubs, gallop, clicks GI/Abdominal exam: Present: soft, normal bowel sounds. Absent: distended, tenderness, guarding, rebound, rigid Extremities exam: Present: normal inspection, full ROM, normal capillary refill. Absent: tenderness, pedal edema, joint swelling, calf tenderness Back exam: Present: normal inspection Neurological exam: Present: alert, oriented X3, CN II-XII intact Psychiatric exam: Present: normal affect, normal mood Skin exam: Present: warm, dry, intact, normal color. Absent: rash Course Vital Signs 01/08/23 16:45 Temperature 97.5 F L Pulse Rate 79 Respiratory 20 Rate Blood Pressure 109/62 O2 Sat by Pulse 97 Oximetry - Reevaluation(s) Reevaluation #1: 01/08/23 17:25 Medical record is reviewed Reevaluation #2: 01/08/23 17:25 Patient has persistent chest pain here in the ER Reevaluation #3: 01/08/23 17:25 Patient informed of results and questions answered Reevaluation #4: 01/08/23 17:25 Was pt. sent in by a medical professional or institution? @ -no Did you speak to anyone other than the patient for history? @ -no Did you review nursing and triage notes? @ -agree Were old charts reviewed? @ -no Differential Diagnosis? @ -prior,CP EKG interpreted by me (3pts min.)? @ -yes X-rays interpreted by me (1pt min.)? @ -yes CT interpreted by me (1pt min.)? @ -no U/S interpreted by me (1pt. min.)? @ -no What testing was considered but not performed? (CT, X-rays, U/S, labs)? Why? @ no What meds were considered but not given? Why? @ -none Did you discuss the management of the patient with other professionals? @ -no Did you reconcile home meds? @ -no Was smoking cessation discussed for >3mins.? @ -no Was critical care preformed (if so, how long)? @ -yes Were there social determinants of health that impacted care today? How? (Homelessness, low income, unemployed, alcoholism, drug addiction, transportation, low edu. Level, literacy, decrease access to med. care, prison, rehab)? @ -no Was there de-escalation of care discussed even if they declined? (Discuss DNR or withdrawal of care, Hospice)? @ -no What co-morbidities impacted this encounter? (DM, HTN, Smoking, COPD, CAD, Cancer, CVA, Hep., AIDS, mental health diagnosis, sleep apnea, morbid obesity)? @ -none Was patient admitted / discharged? @ -admit Undiagnosed new problem with uncertain prognosis? @ -no Drug Therapy requiring intensive monitoring for toxicity (Heparin, Nitro, Insulin, Cardizem)? @ -none Were any procedures done? @ -no Diagnosis/symptom? @ -ACS,NSTEMI,CP Acute, or Chronic, or Acute on Chronic? @ -acute Uncomplicated (without systemic symptoms) or Complicated (systemic symptoms)? @ -uncomplicated Side effects of treatment? @ -none Exacerbation, Progression, or Severe Exacerbation] @ - Poses a threat to life or bodily function? @ -yes Reevaluation #5: 01/08/23 17:25 Differential Chest Pain: Stable Angina, Unstable Angina, STEMI, NSTEMI Aortic Dissection, Pneumothorax, Musculoskeletal, Esophageal Spasm GERD, Cholecystitis, Pancreatitis, Zoster, this is not meant to be an all-inclusive list. - Consultations Consultation #1: spoke w NAN ok for admission Chest Pain MDM - MDM 67 male DF for evaluation with history of chest pain coming in for chest pain evaluation today. Elevated troponin mildly elevated lipase will recheck patient has persistent chest pain here in the ER will be admitted for cardiac evaluation Critical Care Time Critical Care Time: Yes Total Critical Care Time: 31 Disposition Clinical Impression: Chest pain, ACS (acute coronary syndrome), Unstable angina pectoris, Palpitations, Acute non-ST elevation myocardial infarction (NSTEMI) Disposition: ADMITTED IP TO THIS HOSP Condition: Fair Is patient prescribed a controlled substance at d/c from ED?: No Time of Disposition: 21:00
--- NOTE | 2023-01-08 17:56 | XR ---
EXAMINATION TYPE: XR chest 2V DATE OF EXAM: 01/08/2023 5:52 PM COMPARISON: Chest radiographs from 03/20/2015 TECHNIQUE: XR chest 2V Frontal and lateral views of the chest. CLINICAL INDICATION:Male, 67 years old with history of Chest Pain; FINDINGS: Lungs/Pleura: There is no evidence of pleural effusion, focal consolidation, or pneumothorax. Pulmonary vascularity: Unremarkable. Heart/mediastinum: Cardiomediastinal silhouette is enlarged and stable. Musculoskeletal: No acute osseous pathology. Midline sternotomy wires are noted and stable. IMPRESSION: Persistent cardiomegaly without evidence for acute process.
[2023-01-08 17:58] LABS: Basophils % (A) 0 %; Eosinophils # (A) 0.1 k/uL (0-0.7); Eosinophils % (A) 1 %; HCT 50.3 % (39.0-53.0); HGB 16.1 gm/dL (13.0-17.5); Lymphocytes # (A) 1.4 k/uL (1.0-4.8); Lymphocytes % (A) 12 %; MCH 30.1 pg (25.0-35.0); MCHC 31.9 g/dL (31.0-37.0); MCV 94.2 fL (80.0-100.0); Monocytes # (A) 0.5 k/uL (0-1.0); Monocytes % (A) 4 %; Neutrophils # (A) 9.7 k/uL (1.3-7.7); Neutrophils % (A) 82 %; Platelet Count 252 k/uL (150-450); RBC 5.34 m/uL (4.30-5.90); RDW 13.9 % (11.5-15.5); WBC 11.8 k/uL (3.8-10.6)
[2023-01-08 18:21] LABS: Partial Thromboplastin Time 23.6 sec (22.0-30.0); Prothrombin Time 10.9 sec (9.0-12.0)
[2023-01-08 19:05] LABS: Albumin 4.2 g/dL (3.5-5.0); Potassium 3.9 mmol/L (3.5-5.1); Total Bilirubin 0.7 mg/dL (0.2-1.3); Total Protein 7.4 g/dL (6.3-8.2)
[2023-01-08] MEDS ORDERED: ONDANSETRON 4 MG/2 ML VIAL IVP PRN (21:07)
[2023-01-08] MEDS ORDERED: NALOXONE 0.4 MG/ML 1 ML VIAL IV PRN (21:07)
[2023-01-08] MEDS ORDERED: MORPHINE SULFATE 4 MG/ML SYRINGE IV PRN (21:07)
[2023-01-08] MEDS ORDERED: ASPIRIN 81 MG PO STA (22:12)
[2023-01-08] MEDS: SODIUM CHLORIDE 0.9% 1,000 ML IV SCH (23:31)
[2023-01-09 06:49] LABS: Basophils # (A) 0.1 k/uL (0-0.2); Basophils % (A) 0 %; Eosinophils # (A) 0.1 k/uL (0-0.7); Eosinophils % (A) 1 %; HCT 49.6 % (39.0-53.0); HGB 16.3 gm/dL (13.0-17.5); Lymphocytes # (A) 2.5 k/uL (1.0-4.8); Lymphocytes % (A) 21 %; MCHC 32.9 g/dL (31.0-37.0); MCV 91.2 fL (80.0-100.0); Mean Platelet Volume 7.3; Monocytes # (A) 0.6 k/uL (0-1.0); Monocytes % (A) 5 %; Neutrophils # (A) 8.6 k/uL (1.3-7.7); Neutrophils % (A) 71 %; Platelet Count 240 k/uL (150-450); RBC 5.43 m/uL (4.30-5.90); RDW 14.1 % (11.5-15.5); WBC 12.1 k/uL (3.8-10.6)
[2023-01-09 07:00] LABS: Albumin 4.2 g/dL (3.5-5.0); Calcium 9.8 mg/dL (8.4-10.2); Magnesium 2.1 mg/dL (1.6-2.3); Phosphorus 3.3 mg/dL (2.5-4.5); Potassium 3.8 mmol/L (3.5-5.1); Total Bilirubin 0.8 mg/dL (0.2-1.3); Total Protein 7.4 g/dL (6.3-8.2)
[2023-01-09] MEDS ORDERED: ASPIRIN 325 MG TAB PO SCH (09:00)
[2023-01-09] MEDS ORDERED: metOLazone 5 MG TAB PO SCH (09:00)
[2023-01-09] MEDS: FLECAINIDE 50 MG TAB PO SCH ×2 (09:34→21:17)
[2023-01-09] MEDS: ASPIRIN 81 MG PO SCH (09:34)
[2023-01-09] MEDS: lisinopriL 5 MG TAB PO SCH (09:36)
[2023-01-09] MEDS: POTASSIUM CHLORIDE ER 10 MEQ TAB.ER.PRT PO SCH ×2 (09:36→20:18)
[2023-01-09] MEDS: FUROSEMIDE 40 MG TAB PO SCH ×2 (09:37→16:19)
[2023-01-09] MEDS: METOPROLOL TARTRATE 50 MG TAB PO SCH ×2 (09:37→20:20)
[2023-01-09] MEDS ORDERED: DEXTROSE 50% SYRINGE 50 ML IVP PRN ×2 (11:30)
--- NOTE | 2023-01-09 11:30 | P.CRDCN ---
History of Present Illness Consult date: 01/09/23 Requesting physician: Fransisco Paige Reason for Consult (text): chest pain Chief complaint: chest fullness History of present illness: This is a 67-year-old gentleman who follows with a watch dial maker out of [place]. Has a history of hypertension, hyperlipidemia, diabetes, SVT, bicuspid aortic valve with severe aortic stenosis status post aortic valve replacement in 2014 at which time an echocardiogram showed an ejection fraction of 45%. According the patient underwent cardiac catheterization in 2014 that was unremarkable. Presented to the emergency department with a complaint of right sided chest fullness and overall not feeling well. Vital signs have been stable. Troponins were not significantly elevated at 0.019, 0.017 and 0.018. NT proBNP was 266. BUN 41, creatinine 1.49. EKG showed sinus mechanism with PACs and intraventricular conduction delay similar to previous. Upon examination he is resting comfortably in bed. He is overall feeling better. He has complaints of dyspnea on exertion that is chronic and unchanged. Lower extremity edema controlled by oral diuretics at home. Denies any complaints of orthopnea or PND. Likely has obstructive sleep apnea but did not follow through with sleep study. He denies any complaints of palpitations since starting flecainide in 2019. Denies any dizziness, lightheadedness or syncope. According to him he follows regularly with his watch dial maker and has regular echocardiograms. He's not sure when his last stress test was but sounds to be many years ago prior to his valve replacement. Past Medical History Past Medical History: Coronary Artery Disease (CAD), Heart Failure, Diabetes Mellitus, Hyperlipidemia, Hypertension Additional Past Medical History / Comment(s): SVT, History of Any Multi-Drug Resistant Organisms: None Reported Past Surgical History: Orthopedic Surgery Additional Past Surgical History / Comment(s): aortic valve replacement, Past Anesthesia/Blood Transfusion Reactions: No Reported Reaction Past Psychological History: No Psychological Hx Reported Smoking Status: Never smoker Past Alcohol Use History: None Reported Past Drug Use History: None Reported Medications and Allergies Home Medications Medication Instructions Recorded Confirmed Type Aspirin EC [Ecotrin Low Dose] 81 mg PO HS 10/05/19 01/08/23 History Atorvastatin [Lipitor] 20 mg PO HS 10/05/19 01/08/23 History Empagliflozin [Jardiance] 25 mg PO DAILY 01/13/21 01/08/23 History Flecainide Acetate [Tambocor] 100 mg PO BID 01/13/21 01/08/23 History Furosemide [Lasix] 40 mg PO BID 01/13/21 01/08/23 History Metoprolol Tartrate [Lopressor] 50 mg PO BID 01/13/21 01/08/23 History Potassium Chloride ER [K-Dur 10] 10 meq PO BID 01/13/21 01/08/23 History lisinopriL [Zestril] 5 mg PO DAILY 01/13/21 01/08/23 History metOLazone [Zaroxolyn] 5 mg PO Q48H 01/13/21 01/08/23 History Dulaglutide [Trulicity] 4.5 mg SQ TH 01/08/23 01/08/23 History Ketoconazole 2% Shampoo [Nizoral] 1 applic TOPICAL DAILY PRN 01/08/23 01/08/23 History Levothyroxine Sodium [Synthroid] 125 mcg PO DAILY 01/08/23 01/08/23 History Pioglitazone [Actos] 45 mg PO DAILY 01/08/23 01/08/23 History metFORMIN HCL ER [Glucophage XR] 500 mg PO BID 01/08/23 01/08/23 History Allergies Allergy/AdvReac Type Severity Reaction Status Date / Time No Known Allergies Allergy Verified 01/08/23 20:42 Physical Exam Vitals: Vital Signs Temp Pulse Pulse Resp BP BP Pulse Ox 01/09/23 07:59 97.7 F 76 18 124/64 97 01/09/23 07:00 98.9 F 79 20 122/75 95 01/08/23 16:45 97.5 F L 79 20 109/62 97 Intake and Output 01/08/23 01/09/23 01/09/23 22:59 06:59 14:59 Other: Weight 136.078 kg 136.078 kg PHYSICAL EXAMINATION: This is a 67-year-old gentleman in no apparent distress at the time of my examination. HEENT: Head is atraumatic, normocephalic. Pupils are equal, round. Sclerae ani cteric. Conjunctivae are clear. Mucous membranes of the mouth are moist. Neck is supple. There is no elevated jugular venous pressure. No carotid bruit is heard. CHEST EXAMINATION: Clear to auscultation bilaterally. No wheezes rales or rhonchi. Respirations even and nonlabored. HEART EXAMINATION: Heart regular, positive S1 and S2. No S3. No S4. With a systolic murmur at the base. ABDOMEN: Soft, obese, nontender. Bowel sounds are heard. No organomegaly noted. EXTREMITIES: 2+ peripheral pulses with no evidence of peripheral edema and no calf tenderness noted. NEUROLOGIC EXAMINATION: Patient is awake, alert and oriented x3. Results 01/09/23 06:20 01/09/23 06:20 Cardiac Enzymes 01/08/23 01/08/23 01/08/23 Range/Units 17:48 17:48 21:26 AST 27 (17-59) U/L Troponin I 0.019 0.017 (0.000-0.034) ng/mL 01/09/23 01/09/23 Range/Units 01:25 06:20 AST 24 (17-59) U/L Troponin I 0.018 (0.000-0.034) ng/mL Coagulation 01/08/23 Range/Units 17:48 PT 10.9 (9.0-12.0) sec APTT 23.6 (22.0-30.0) sec CBC 01/08/23 01/09/23 Range/Units 17:48 06:20 WBC 11.8 H 12.1 H (3.8-10.6) k/uL RBC 5.34 5.43 (4.30-5.90) m/uL Hgb 16.1 16.3 (13.0-17.5) gm/dL Hct 50.3 49.6 (39.0-53.0) % Plt Count 252 240 (150-450) k/uL Comprehensive Metabolic Panel 01/08/23 01/09/23 Range/Units 17:48 06:20 Sodium 133 L 135 L (137-145) mmol/L Potassium 3.9 3.8 (3.5-5.1) mmol/L Chloride 94 L 96 L (98-107) mmol/L Carbon Dioxide 28 31 H (22-30) mmol/L BUN 41 H 40 H (9-20) mg/dL Creatinine 1.49 H 1.39 H (0.66-1.25) mg/dL Glucose 209 H 146 H (74-99) mg/dL Calcium 10.0 9.8 (8.4-10.2) mg/dL AST 27 24 (17-59) U/L ALT 26 23 (4-49) U/L Alkaline Phosphatase 131 H 109 (38-126) U/L Total Protein 7.4 7.4 (6.3-8.2) g/dL Albumin 4.2 4.2 (3.5-5.0) g/dL Current Medications Generic Name Dose Route Start Last Admin Trade Name Freq PRN Reason Stop Dose Admin Aspirin 81 mg 01/09/23 09:00 01/09/23 09:34 Aspirin 81 Mg PO 81 mg DAILY KATHI Administration Atorvastatin Calcium 20 mg 01/09/23 21:00 Atorvastatin 20 Mg Tab PO HS KATHI Flecainide Acetate 100 mg 01/09/23 09:00 01/09/23 09:34 Flecainide 50 Mg Tab PO 100 mg BID KATHI Administration Furosemide 40 mg 01/09/23 09:00 01/09/23 09:37 Furosemide 40 Mg Tab PO 40 mg 0900,1700 KATHI Administration Sodium Chloride 1,000 mls @ 20 mls/hr 01/08/23 21:15 01/08/23 23:31 Saline 0.9% IV 20 mls/hr .Q24H KATHI Administration Lisinopril 5 mg 01/09/23 09:00 01/09/23 09:36 Lisinopril 5 Mg Tab PO 5 mg DAILY KATHI Administration Metolazone 5 mg 01/09/23 09:00 01/09/23 09:36 Metolazone 5 Mg Tab PO 5 mg Q48H KATHI Administration Metoprolol Tartrate 50 mg 01/09/23 09:00 01/09/23 09:37 Metoprolol Tartrate 50 Mg Tab PO 50 mg BID KATHI Administration Morphine Sulfate 4 mg 01/08/23 21:07 Morphine Sulfate 4 Mg/Ml Syringe IV Q4HR PRN Severe Pain (Scale 7 to 10) Naloxone HCl 0.2 mg 01/08/23 21:07 Naloxone 0.4 Mg/Ml 1 Ml Vial IV Q2M PRN Opioid Reversal Ondansetron HCl 4 mg 01/08/23 21:07 Ondansetron 4 Mg/2 Ml Vial IVP Q8HR PRN Nausea And Vomiting Potassium Chloride 10 meq 01/09/23 09:00 01/09/23 09:36 Potassium Chloride Er 10 Meq Tab.Er.Prt PO 10 meq BID KATHI Administration Intake and Output 01/08/23 01/09/23 01/09/23 22:59 06:59 14:59 Other: Weight 136.078 kg 136.078 kg Patient Weight 01/10/23 06:59 Weight 136.078 kg 01/09/23 06:20 01/09/23 06:20 Assessment and Plan Assessment: #1 right-sided chest fullness, and acute coronary event has been ruled out, no ischemic changes noted on EKG, troponins unremarkable #2 status post aVR in 2014 for bicuspid aortic valve with severe aortic stenosis #3 history of cardiomyopathy with ejection fraction of 45% in 2015, likely nonischemic #4 hypertension #5 hyperlipidemia #6 diabetes #7 morbid obesity Plan: From cardiology's perspective will obtain a 2-D echo with Doppler study. If there are no significant abnormalities in the prosthetic aortic valve and no significant change in ejection fraction patient may be discharged home. He will follow-up with his primary watch dial maker. HOUSEHOLD PERSONAL ASSISTANT note has been reviewed, I agree with a documented findings and plan of care. Patient was seen and examined.
[2023-01-09 11:48] LABS: Glucose,Whole Blood 233 mg/dL (70-110)
--- NOTE | 2023-01-09 12:48 | US ---
EXAMINATION TYPE: US abdomen complete DATE OF EXAM: 01/09/2023 COMPARISON: None CLINICAL INDICATION: Male, 67 years old with history of Abdominal pain; Patient states he will feel h ungry, eat a little bit and then feel full. An hour later, he will get the feeling of hunger again. TECHNIQUE: Multiple sonographic images of the abdomen are obtained. FINDINGS: EXAM MEASUREMENTS: Liver Length: 22.3 cm Gallbladder Wall: 0.2 cm Spleen: 12.0 cm Right Kidney: 11.3 x 5.5 x 6.2 cm Left Kidney: 12.7 x 5.0 x 6.2 cm SILK PRINTER NOTES: Very limited exam due to patient body habitus Pancreas: Not well seen, appears echogenic Liver: Increased attenuation, decreased visualization of vessels suggestive of fatty infiltrate. En larged in size. Echogenic in appearance. Gallbladder: No stones seen Evidence for sonographic Holman's sign: neg CBD: Obscured by overlying bowel gas Spleen: multiple echogenic lesion seen throughout spleen Right Kidney: No prominent hydronephrosis or masses seen Left Kidney: No prominent hydronephrosis or masses seen Upper IVC: Obscured by overlying bowel gas Abd Aorta: Proximal Aorta not visualized, limited mid and distal The liver is homogenous and increased in echotexture. The intrahepatic portion of the IVC and proxim al abdominal aorta are within normal limits. There is no evidence of cholelithiasis. Common bile du ct is unremarkable. The visualized portions of the pancreas are homogenous. The spleen demonstrates multiple hyperechoic foci which could represent calcification. Kidneys are symmetric and free of hy dronephrosis. No renal lesions are seen. IMPRESSION: 1. Limited exam secondary to body habitus. No acute process. 2. Hepatic steatosis. 3. Multiple echogenic lesions throughout the spleen could represent calcifications in the setting of chronic granulomatous disease.
--- NOTE | 2023-01-09 13:33 | CA ---
Transthoracic Echo Report Name: Darwin Garrido Age: 67 Gender: M : 1955 Exam Date: 01/09/2023 12:28 Exam Location: [facility] Ht (in): 69 Wt (lb): 300 Ordering Physician: Maame Tomas Attending/Referring Phys: [id number], Genoveva Advance Agent Nena Breen RDCS Procedure CPT: Indications: chest pain, prior AVR Cardiac Hx: Technical Quality: Technically difficult study Contrast 1: Lumason Total Dose (mL): 3 Contrast 2: Total Dose (mL): MEASUREMENTS (Male / Female) Normal Values 2D ECHO LV Diastolic Diameter PLAX 5.6 cm 4.2 - 5.9 / 3.9 - 5.3 cm LV Systolic Diameter PLAX 4.3 cm IVS Diastolic Thickness 1.7 cm 0.6 - 1.0 / 0.6 - 0.9 cm LVPW Diastolic Thickness 1.7 cm 0.6 - 1.0 / 0.6 - 0.9 cm LV Relative Wall Thickness 0.6 RV Internal Dim ED PLAX 3.4 cm LA Systolic Diameter LX 3.6 cm 3.0 - 4.0 / 2.7 - 3.8 cm M-MODE Aortic Root Diameter MM 4.0 cm MV E Point Septal Separation 1.5 cm DOPPLER AV Peak Velocity 281.3 cm/s AV Peak Gradient 31.6 mmHg AV Mean Velocity 205.1 cm/s AV Mean Gradient 18.4 mmHg AV Velocity Time Integral 61.1 cm AI Peak Velocity 445.8 cm/s AI Peak Gradient 79.5 mmHg AI Pressure Half Time 399.2 ms LVOT Peak Velocity 86.8 cm/s LVOT Peak Gradient 3.0 mmHg MV Area PHT 3.0 cm??? Mitral E Point Velocity 84.3 cm/s Mitral A Point Velocity 77.3 cm/s Mitral E to A Ratio 1.1 MV Deceleration Time 255.6 ms FINDINGS Left Ventricle Left ventricular ejection fraction is estimated at 55-60 %. Left ventricular cavity size normal. Severe concentric left ventricular hypertrophy. No obvious regional wall motion abnormalities. Right Ventricle Right ventricular dilatation. Unable to estimate the right ventricular systolic pressure. Right Atrium Right atrium not well visualized. Left Atrium Left atrium not well visualized. Mitral Valve Mitral valve not well visualized. Aortic Valve Moderate biprosthetic AOV regurgitation. Peak gradient max 32 mmHg and mean 18 mmHg. Aortic valve not well visualized. Tricuspid Valve Tricuspid valve not well visualized. No tricuspid regurgitation. Pulmonic Valve Structurally normal pulmonic valve. Trace pulmonic regurgitation. Pericardium Normal pericardium. No pericardial effusion. Pericardial fat pad Aorta Mildly dilated aortic annulus 40 mm CONCLUSIONS Technically difficult study. 1. Normal ventricle size and systolic function 2. Bioprosthetic aortic valve with moderate aortic regurgitation and a mean gradient of 18 mmHg Previewed by: Dr. Cleopatra Jack MD (Electronically Signed) Final Date: 09 Jan 2023 13:32
[2023-01-09] MEDS: INSULIN ASPART (NovoLOG) 100 UNIT/ML VIAL SQ SCH ×3 (13:42→21:17)
--- NOTE | 2023-01-09 14:46 | P.HPIM ---
History of Present Illness H&P Date: 01/09/23 History of present illness; patient is a 67-year-old gentleman past medical significant for coronary artery disease, CHF, diabetes mellitus, hypertension, hyperlipidemia, history of SVT presented to the ER because of chest pain. Patient started noticing right-sided chest pressure and feeling of fullness. has been noticing that patient has been having low appetite and early satiety. Patient denies abdominal pain. No complaint of altered bowel movements. Initial lab work done in the ER showed WBC 11.8, hemoglobin 16.1, sodium 133, potassium 3.9, BUN 41, creatinine 1.49, alkaline phosphatase 131, lipase 338 Chest x-ray done showed persistent cardiomegaly without evidence for acute proce ss Initial EKG done did not show any acute ST segment changes, no T-wave inversions Patient was admitted to internal medicine service for further evaluation and treatment REVIEW OF SYSTEMS: CONSTITUTIONAL: No fever, no malaise, no fatigue. HEENT: No recent visual problems or hearing problems. Denied any sore throat. CARDIOVASCULAR: As mentioned in HPI PULMONARY: No shortness of breath, no cough, no hemoptysis. GASTROINTESTINAL: No diarrhea, no nausea, no vomiting, no abdominal pain. NEUROLOGICAL: No headaches, no weakness, no numbness. HEMATOLOGICAL: Denies any bleeding or petechiae. GENITOURINARY: Denies any burning micturition, frequency, or urgency. MUSCULOSKELETAL/RHEUMATOLOGICAL: Denies any joint pain, swelling, or any muscle pain. ENDOCRINE: Denies any polyuria or polydipsia. The rest of the 14-point review of systems is negative. PHYSICAL EXAMINATION: GENERAL: The patient is alert and oriented x3, not in any acute distress. Well developed, well nourished. HEENT: Pupils are round and equally reacting to light. EOMI. No scleral icterus. No conjunctival pallor. Normocephalic, atraumatic. No pharyngeal erythema. No thyromegaly. CARDIOVASCULAR: S1 and S2 present. No murmurs, rubs, or gallops. PULMONARY: Chest is clear to auscultation, no wheezing or crackles. ABDOMEN: Soft, nontender, nondistended, normoactive bowel sounds. No palpable organomegaly. MUSCULOSKELETAL: No joint swelling or deformity. EXTREMITIES: No cyanosis, clubbing, or pedal edema. NEUROLOGICAL: Gross neurological examination did not reveal any focal deficits. SKIN: No rashes. Assessment and plan Chest pain Elevated lipase Acute kidney injury History of coronary artery disease History of CHF Hypertension Hyperlipidemia Plan; Monitor vital signs Monitor CBC Monitor CMP Ordered ultrasound of abdominal Trend troponin Ordered 2-D echo Consult cardiology Past Medical History Past Medical History: Coronary Artery Disease (CAD), Heart Failure, Diabetes Mellitus, Hyperlipidemia, Hypertension Additional Past Medical History / Comment(s): SVT, History of Any Multi-Drug Resistant Organisms: None Reported Past Surgical History: Orthopedic Surgery Additional Past Surgical History / Comment(s): aortic valve replacement, Past Anesthesia/Blood Transfusion Reactions: No Reported Reaction Past Psychological History: No Psychological Hx Reported Smoking Status: Never smoker Past Alcohol Use History: None Reported Past Drug Use History: None Reported Medications and Allergies Home Medications Medication Instructions Recorded Confirmed Type Aspirin EC [Ecotrin Low Dose] 81 mg PO HS 10/05/19 01/08/23 History Atorvastatin [Lipitor] 20 mg PO HS 10/05/19 01/08/23 History Empagliflozin [Jardiance] 25 mg PO DAILY 01/13/21 01/08/23 History Flecainide Acetate [Tambocor] 100 mg PO BID 01/13/21 01/08/23 History Furosemide [Lasix] 40 mg PO BID 01/13/21 01/08/23 History Metoprolol Tartrate [Lopressor] 50 mg PO BID 01/13/21 01/08/23 History Potassium Chloride ER [K-Dur 10] 10 meq PO BID 01/13/21 01/08/23 History lisinopriL [Zestril] 5 mg PO DAILY 01/13/21 01/08/23 History metOLazone [Zaroxolyn] 5 mg PO Q48H 01/13/21 01/08/23 History Dulaglutide [Trulicity] 4.5 mg SQ TH 01/08/23 01/08/23 History Ketoconazole 2% Shampoo [Nizoral] 1 applic TOPICAL DAILY PRN 01/08/23 01/08/23 History Levothyroxine Sodium [Synthroid] 125 mcg PO DAILY 01/08/23 01/08/23 History Pioglitazone [Actos] 45 mg PO DAILY 01/08/23 01/08/23 History metFORMIN HCL ER [Glucophage XR] 500 mg PO BID 01/08/23 01/08/23 History Allergies Allergy/AdvReac Type Severity Reaction Status Date / Time No Known Allergies Allergy Verified 01/08/23 20:42 Physical Exam Vitals: Vital Signs Temp Pulse Pulse Resp BP BP Pulse Ox 01/09/23 07:59 97.7 F 76 18 124/64 97 01/09/23 07:00 98.9 F 79 20 122/75 95 01/08/23 16:45 97.5 F L 79 20 109/62 97 Intake and Output 01/08/23 01/09/23 01/09/23 22:59 06:59 14:59 Other: Weight 136.078 kg 136.078 kg Results CBC & Chem 7: 01/09/23 06:20 01/09/23 06:20 Labs: Abnormal Lab Results - Last 24 Hours (Table) 01/08/23 01/08/23 01/09/23 Range/Units 17:48 17:48 06:20 WBC 11.8 H 12.1 H (3.8-10.6) k/uL Neutrophils # 9.7 H 8.6 H (1.3-7.7) k/uL Sodium 133 L (137-145) mmol/L Chloride 94 L (98-107) mmol/L Carbon Dioxide (22-30) mmol/L BUN 41 H (9-20) mg/dL Creatinine 1.49 H (0.66-1.25) mg/dL Glucose 209 H (74-99) mg/dL Alkaline Phosphatase 131 H (38-126) U/L Lipase 338 H (23-300) U/L 01/09/23 Range/Units 06:20 WBC (3.8-10.6) k/uL Neutrophils # (1.3-7.7) k/uL Sodium 135 L (137-145) mmol/L Chloride 96 L (98-107) mmol/L Carbon Dioxide 31 H (22-30) mmol/L BUN 40 H (9-20) mg/dL Creatinine 1.39 H (0.66-1.25) mg/dL Glucose 146 H (74-99) mg/dL Alkaline Phosphatase (38-126) U/L Lipase (23-300) U/L Thrombosis Risk Factor Assmnt - Choose All That Apply Each Risk Factor Represents 2 Points: Age 61-74 years Thrombosis Risk Factor Assessment Total Risk Factor Score: 2 Thrombosis Risk Factor Assessment Level: Low Risk
--- NOTE | 2023-01-09 16:14 | CT ---
EXAMINATION TYPE: CT abdomen pelvis wo con DATE OF EXAM: 01/09/2023 COMPARISON: None HISTORY: Abdominal pain, weight loss CT DLP: 1536.70 mGycm Automated exposure control for dose reduction was used. TECHNIQUE: Helical acquisition of images was performed from the lung bases through the pelvis. FINDINGS: Lung bases are clear. There is an aortic valve. The gallbladder is normal without gallstones, wall thickening, distention or pericholecystic fluid. There is no organomegaly involving the liver, pancreas, spleen or adrenal glands. The pancreas is atr ophic. Kidneys are mildly atrophic but there are no renal calcifications or hydronephrosis. Caliber the abdominal aorta is normal. The bowel loops are normal in caliber and there is no dilatation or obstruction. No inflammatory van ges are identified in the bowel wall or mesentery. There is no free intraperitoneal air or fluid. There is no pelvic mass, free fluid, abscess or adenopathy. The osseous structures are intact. IMPRESSION: 1. Atrophic pancreas. 2 mildly atrophic kidneys. 3. No other significant abnormality seen.
[2023-01-09] MEDS: SODIUM CHLORIDE 0.9% 1,000 ML IV SCH (20:20)
[2023-01-09] MEDS ORDERED: ATORVASTATIN 20 MG TAB PO SCH (21:00)
[2023-01-09] MEDS ORDERED: ASPIRIN 81 MG PO SCH (21:00)
[2023-01-10] MEDS ORDERED: LEVOTHYROXINE 125 MCG TAB PO SCH (06:30)
[2023-01-10 08:05] LABS: Glucose,Whole Blood 130 mg/dL (70-110)
[2023-01-10] MEDS: INSULIN ASPART (NovoLOG) 100 UNIT/ML VIAL SQ SCH (08:17)
[2023-01-10] MEDS: lisinopriL 5 MG TAB PO SCH (08:18)
[2023-01-10] MEDS: POTASSIUM CHLORIDE ER 10 MEQ TAB.ER.PRT PO SCH (08:18)
[2023-01-10] MEDS: FUROSEMIDE 40 MG TAB PO SCH (08:18)
[2023-01-10] MEDS: METOPROLOL TARTRATE 50 MG TAB PO SCH (08:18)
[2023-01-10] MEDS: FLECAINIDE 50 MG TAB PO SCH (08:18)
[2023-01-10] MEDS: ASPIRIN 81 MG PO SCH (08:18)
[2023-01-10 08:24] VITALS: BP 106/63; PULSE 73; RESP 18; TEMP 97.5
[2023-01-10] MEDS ORDERED: DAPAGLIFLOZIN PROPANEDIOL 10 MG TABLET PO SCH (09:00)
[2023-01-10] MEDS ORDERED: PIOGLITAZONE 45 MG TAB PO SCH (09:00)
--- NOTE | 2023-01-10 10:02 | P.DS ---
Providers Date of admission: 01/08/23 21:07 Expected date of discharge: 01/10/23 Attending physician: Fransisco Paige Consults: 01/08/23 21:07 Consult Physician Routine Consulting Provider: Cleopatra Jack Consult Reason/Comments: cp Do you want consulting provider notified?: Yes Primary care physician: Minna Sousa Hospital Course: Discharge diagnoses; Chest pain Elevated lipase Acute kidney injury History of coronary artery disease History of CHF Hypertension Hyperlipidemia Hospital course; patient is a 67-year-old gentleman past medical significant for coronary artery disease, CHF, diabetes mellitus, hypertension, hyperlipidemia, history of SVT presented to the ER because of chest pain. Patient started noticing right-sided chest pressure and feeling of fullness. has been noticing that patient has been having low appetite and early satiety. Patient denies abdominal pain. No complaint of altered bowel movements. Initial lab work done in the ER showed WBC 11.8, hemoglobin 16.1, sodium 133, potassium 3.9, BUN 41, creatinine 1.49, alkaline phosphatase 131, lipase 338 Chest x-ray done showed persistent cardiomegaly without evidence for acute process Initial EKG done did not show any acute ST segment changes, no T-wave inversions Patient was admitted to internal medicine service for further evaluation and treatment 01/10. Cardiology eval the patient, recommending doing 2-D echo, 2-D echo did not show any acute changes in LVEF, no wall motion abnormalities. Cardiology recommended outpatient follow-up. Patient lipase level was elevated, ultrasound abdomen was done that showed hepatic steatosis, CT abdominal and pelvis showed atrophic pancreas, no acute intra-abdominal process PHYSICAL EXAMINATION: GENERAL: The patient is alert and oriented x3, not in any acute distress. Well developed, well nourished. HEENT: Pupils are round and equally reacting to light. EOMI. No scleral icterus. No conjunctival pallor. Normocephalic, atraumatic. No pharyngeal erythema. No thyromegaly. CARDIOVASCULAR: S1 and S2 present. No murmurs, rubs, or gallops. PULMONARY: Chest is clear to auscultation, no wheezing or crackles. ABDOMEN: Soft, nontender, nondistended, normoactive bowel sounds. No palpable organomegaly. MUSCULOSKELETAL: No joint swelling or deformity. EXTREMITIES: No cyanosis, clubbing, or pedal edema. NEUROLOGICAL: Gross neurological examination did not reveal any focal deficits. SKIN: No rashes. Patient Condition at Discharge: Fair Plan - Discharge Summary Discharge Rx Participant: No New Discharge Prescriptions: Continue Atorvastatin [Lipitor] 20 mg PO HS Aspirin EC [Ecotrin Low Dose] 81 mg PO HS Furosemide [Lasix] 40 mg PO BID Empagliflozin [Jardiance] 25 mg PO DAILY Levothyroxine Sodium [Synthroid] 125 mcg PO DAILY lisinopriL [Zestril] 5 mg PO DAILY metOLazone [Zaroxolyn] 5 mg PO Q48H Potassium Chloride ER [K-Dur 10] 10 meq PO BID Metoprolol Tartrate [Lopressor] 50 mg PO BID Flecainide Acetate [Tambocor] 100 mg PO BID metFORMIN HCL ER [Glucophage XR] 500 mg PO BID Pioglitazone [Actos] 45 mg PO DAILY Ketoconazole 2% Shampoo [Nizoral] 1 applic TOPICAL DAILY PRN PRN Reason: FLARES Dulaglutide [Trulicity] 4.5 mg SQ TH Discharge Medication List Aspirin EC [Ecotrin Low Dose] 81 mg PO HS 10/05/19 [History] Atorvastatin [Lipitor] 20 mg PO HS 10/05/19 [History] Empagliflozin [Jardiance] 25 mg PO DAILY 01/13/21 [History] Flecainide Acetate [Tambocor] 100 mg PO BID 01/13/21 [History] Furosemide [Lasix] 40 mg PO BID 01/13/21 [History] Metoprolol Tartrate [Lopressor] 50 mg PO BID 01/13/21 [History] Potassium Chloride ER [K-Dur 10] 10 meq PO BID 01/13/21 [History] lisinopriL [Zestril] 5 mg PO DAILY 01/13/21 [History] metOLazone [Zaroxolyn] 5 mg PO Q48H 01/13/21 [History] Dulaglutide [Trulicity] 4.5 mg SQ TH 01/08/23 [History] Ketoconazole 2% Shampoo [Nizoral] 1 applic TOPICAL DAILY PRN 01/08/23 [History] Levothyroxine Sodium [Synthroid] 125 mcg PO DAILY 01/08/23 [History] Pioglitazone [Actos] 45 mg PO DAILY 01/08/23 [History] metFORMIN HCL ER [Glucophage XR] 500 mg PO BID 01/08/23 [History] Follow up Appointment(s)/Referral(s): Minna Sousa MD [Primary Care Provider] - 1-2 days Patient Instructions/Handouts: Chest Pain (ED) Discharge Disposition: HOME SELF-CARE
[2023-01-12 20:11] LABS: Glucose,Whole Blood 173 mg/dL (70-110)
[2023-01-12 20:11] LABS: Glucose,Whole Blood 133 mg/dL (70-110)
[2023-01-14] MEDS ORDERED: NON FORMULARY DRUG (Dulaglutide [Trulicity] 4.5 MG/0.5 ML Each) SQ SCH (11:29)
== END 2023-01-10 10:41 | disposition home or self-care (01) ==
LOC: EC 16:39 → OBSVTOIN 21:07 → INTOOBSV 21:07 → 6NMEDSUR 21:07 → OBSVTOIN 01-10 09:56 → INTOOBSV 01-10 09:56 → UNDODISIN 01-10 10:41 → UNDODISOB 01-10 10:41
PROVIDERS: ADMIT Hospitalist; ATTEND Hospitalist
DX: R07.89 Other chest pain (principal); N17.9 Acute kidney failure, unspecified; I11.0 Hypertensive heart disease with heart failure; I50.9 Heart failure, unspecified; E11.9 Type 2 diabetes mellitus without complications; E78.00 Pure hypercholesterolemia, unspecified; K76.0 Fatty (change of) liver, not elsewhere classified; D73.89 Other diseases of spleen; I42.9 Cardiomyopathy, unspecified; I25.10 Atherosclerotic heart disease of native coronary artery without angina pectoris; K86.89 Other specified diseases of pancreas; E66.01 Morbid (severe) obesity due to excess calories; Z79.82 Long term (current) use of aspirin; Z79.01 Long term (current) use of anticoagulants; Z79.899 Other long term (current) drug therapy; Z79.84 Long term (current) use of oral hypoglycemic drugs; Z95.2 Presence of prosthetic heart valve; Z68.41 Body mass index [BMI] 40.0-44.9, adult
CPT/HCPCS: 99291; 36415; 94760; 93005; 83880; 80053 ×2; 83690 ×2; 83735 ×2; 84100; 84484 ×2; 85025 ×2; 85610; 85730; 83036; 71046; 76700; 74176; G0378 ×3; C8929; Q9950; 93306

== ENCOUNTER 2023-07-19 19:28 | Outpatient (CLI) | payer MEDICARE | END 2023-07-20 06:00 | disposition home or self-care (01) | LOC: 3 N SLEEP 19:28 | PROVIDERS: ATTEND Internal Medicine | DX: G47.33 Obstructive sleep apnea (adult) (pediatric) (principal) | CPT/HCPCS: 95810 ==